=== PATIENT | female | born 1960 | race Caucasian/White ===

== ENCOUNTER 2019-10-13 14:00 | Inpatient (IN) | payer MEDICARE, OTHER ==
[2019-10-12 23:13] VITALS: BP 129/85; PULSE 88
[2019-10-13] VITALS (7 sets, daily range): BP systolic 122–160; BP diastolic 84–107; PULSE 81–100; TEMP 96.9–98.5
[~2019-10-13] VITALS: Ht 157.5 cm; Wt 51.3 kg
[~2019-10-13 14:00] MED LIST: ESTRACE 1MG1 MG/TAB PO; MULTIPLE VITAMI1 CAP PO; NORCO 325 MG-7.1 TAB PO; WARFARIN; ZOCOR; ZOCOR5 MG PO
[2019-10-13] MEDS ORDERED: PROZAC 20MG20 MG PO (15:46)
[2019-10-13] MEDS ORDERED: NAMENDA 10MG TA10 MG PO (15:49)
--- NOTE | 2019-10-13 17:33 | NUR ---
NG PLACED PER DR ORDERS, NG ADVANCED TO 49CM MARKING, OBSERVED IMMEDIATE DARK GREEN EMESIS WELL NG OUTPUT, PUT TO LOW INTERMITTENT SX PER DR ORDER. PATIENT TOLERATED NG PLACEMENT WELL.
--- NOTE | 2019-10-13 17:34 | NUR ---
Patient arrived via ems from [place] report obtained. Patient non verbal, her family at bedside. Dr. Jassi middleton. med rec completed per daughter dpoa. Consent obtained. Ivf to r.wrist. Ng inserted, 14 F. She tolerated well. Full canister emptied, patient also had emesis. fresh linens provided. Patient to or with estella. wedding ring taped. Family to Or waiting room
--- NOTE | 2019-10-13 21:30 | NUR ---
Pt. arrived to the floor via bed from PACU. Pt. is resting quietly, respirations are equal and unlabored. Pt. will grimice to painful stimuli but will not open eyes. Pt. family at bedside. Midline incision CDI. Abd. lap sites X2 to the lt. sited CDI with bandaids. Call light within reach, vitals stable. Will monitor.
--- NOTE | 2019-10-13 21:30 | NUR ---
Pt. laying in bed with family at bedside. Pt. is resting quietly, respirations are eqal and unlabored. IV fluids infusing per orders. NG tube to LIS patent. SUPERVISOR BUILDING MAINTENANCE started per orders. Dr. Keene reports family aloud to assist pt. with pushing button. Education given to family about SUPERVISOR BUILDING MAINTENANCE's. Pt.'s questions answered. Pt.'s family deny further needs at this time. Call light within reach.
[2019-10-14] VITALS (10 sets, daily range): BP systolic 129–141; BP diastolic 84–95; PULSE 91–110; TEMP 97.7–101.9
[2019-10-14 06:46] LABS: BASO % 0.2 % (0.0-2.0); GRAN # 10.7 (1.4-6.5); GRAN % 85.1 % (42.2-75.2); HEMATOCRIT 37.6 % (37.0-47.0); HEMOGLOBIN 12.3 g/dl (12.5-16.0); LYMPH # 0.7 (1.2-3.4); LYMPH % 5.9 % (20.0-51.0); MEAN CELL VOLUME 89 fl (80.0-100.0); MEAN CORPUSCULAR HEMOGLOBIN 29 pg (27.0-31.0); MEAN CORPUSCULAR HGB CONC 33 g/dl (33.0-37.0); MEAN PLATELET VOLUME 10.2 fl (7.4-10.4); MONO # 1.1 (0.1-0.6); MONO % 8.5 % (1.7-9.3); PLATELET COUNT 236 K/mm3 (130-400); RED BLOOD COUNT 4.23 M/mm3 (4.10-5.30); REDCELL DISTRIBUTION WIDTH-CV 13.9 % (11.5-14.5)
[2019-10-14 07:02] LABS: CALCIUM 8.5 mg/dL (8.4-10.2); CREATININE, serum 1.47 (0.52-1.25); POTASSIUM 4.1 mmol/L (3.4-5.0)
--- NOTE | 2019-10-14 08:00 | NUR ---
Patient resting in bed at this time, NG tube in left nare to LIS, approximately 500ml of dark green liquid in suction cannister, none above marked line from previous shift. Patient is alert but non verbal, does not acknowledge questions or attempt to answer them nonverbally. COMMUNITY PLANNER in place per order. Patient and family deny needs at this time, call light within reach.
--- NOTE | 2019-10-14 09:00 | NUR ---
Patient's daughter calls to report that patient has removed her NG tube. Called oncall surgeon and recieved instructions not to replace the tube, but to report if the patient becomes nauseated or begins vomiting.
--- NOTE | 2019-10-14 12:21 | NUR ---
Plan: To return home with DTR Shandra and Raul and Home health care through [facility]. Assess: SW met with patient, dtr, and spouse in room. Patient is non verbal and uses no other forms to communicate. Patient is reported by DTR to be weak when walking and often loses her balance. Patient is taken care of by her and dtr but also have other children not local. DTR is names as the DPOA for HC. Family is wanting additional supports at home and have agreed to use home health care services. Family provided with the medicare.gov sheet. Patient does not use any DME at this time but they are wanting a walker. PCP is reported as Dr. Benitez. RX is obtained at [facility]. Patient is reported to be [id number] for approx. 1 year. provides transport and DTR helps with meals and medications. teary when talking about wifes care. Action: SW made referral to [place] on behalf of the family choice, SW provided additional information on [employer] about care attendent, and other DME that they shante need. Awaiting PT eval to assist with obtaining walker through insurance.
--- NOTE | 2019-10-14 19:03 | NUR ---
Patient resting in bed at this time. Waddell in place per order. AUTO CLUTCH SPECIALIST continues per order. Dressing to midline remians CDI. Patient/family deny nausea or vomiting. No needs at this time, call light within reach.
--- NOTE | 2019-10-14 22:00 | NUR ---
PT IN BED. FAMILY IN ROOM. PT HAS BEEN NON-VERBAL BUT COOPERATIVE. DRESSING TO ABDOMEN CD&I.
[2019-10-15 03:54] VITALS: BP 133/84; PULSE 91; TEMP 98.6
[2019-10-15 06:14] LABS: BASO % 0.1 % (0.0-2.0); EOS % 0.4 % (0-4.0); GRAN # 7.2 (1.4-6.5); GRAN % 81.3 % (42.2-75.2); LYMPH # 0.8 (1.2-3.4); LYMPH % 8.9 % (20.0-51.0); MEAN CELL VOLUME 89 fl (80.0-100.0); MEAN CORPUSCULAR HGB CONC 33 g/dl (33.0-37.0); MEAN PLATELET VOLUME 9.8 fl (7.4-10.4); MONO # 0.8 (0.1-0.6); MONO % 8.6 % (1.7-9.3); PLATELET COUNT 178 K/mm3 (130-400); RED BLOOD COUNT 3.47 M/mm3 (4.10-5.30); REDCELL DISTRIBUTION WIDTH-CV 14.1 % (11.5-14.5)
--- NOTE | 2019-10-15 06:16 | NUR ---
PT RESTED QUIETLY MOST OF NIGHT. PT WAS EXTREMELY AGITATED AT TIMES BY NASAL CANNULA FROM CSR.
[2019-10-15 06:22] LABS: HEMOGLOBIN 10.2 g/dl (12.5-16.0); MEAN CORPUSCULAR HEMOGLOBIN 29 pg (27.0-31.0)
[2019-10-15 06:27] LABS: CALCIUM 8.3 mg/dL (8.4-10.2); CREATININE, serum 0.82 (0.52-1.25); POTASSIUM 3.7 mmol/L (3.4-5.0)
[2019-10-15 07:35] VITALS: BP 142/95; PULSE 89; TEMP 98.4
--- NOTE | 2019-10-15 09:28 | NUR ---
Faxed referral information to [facility] at [phone].
[2019-10-15 10:48] VITALS: BP 140/86; PULSE 100; TEMP 98.7
[2019-10-15 15:44] VITALS: BP 132/90; PULSE 103; TEMP 98.7
[2019-10-15 20:00] VITALS: BP 130/79; PULSE 97; TEMP 99.6
--- NOTE | 2019-10-15 20:00 | NUR ---
Pt. sitting up in bed with at bedside. Pt. is alert, unable to determine orientation. Midline incision to abd- edges well approximated, 2 abd. lap sites with bandaids, CDI. Pt. does not appear to be in pain at this time. Call light within reach.
[2019-10-16 04:12] VITALS: BP 132/77; PULSE 100; TEMP 98.7
--- NOTE | 2019-10-16 06:18 | NUR ---
Pt. slept well through the night. Pt. status remains unchanged. at bedside. Call light within reach.
[2019-10-16 06:20] LABS: BASO % 0.1 % (0.0-2.0); EOS # 0.1 (0.0-0.7); EOS % 0.8 % (0-4.0); GRAN # 8.9 (1.4-6.5); GRAN % 86.1 % (42.2-75.2); HEMOGLOBIN 10.6 g/dl (12.5-16.0); LYMPH # 0.5 (1.2-3.4); LYMPH % 5.1 % (20.0-51.0); MEAN CELL VOLUME 87 fl (80.0-100.0); MEAN CORPUSCULAR HEMOGLOBIN 29 pg (27.0-31.0); MEAN CORPUSCULAR HGB CONC 34 g/dl (33.0-37.0); MEAN PLATELET VOLUME 9.9 fl (7.4-10.4); MONO # 0.8 (0.1-0.6); MONO % 7.3 % (1.7-9.3); PLATELET COUNT 188 K/mm3 (130-400); RED BLOOD COUNT 3.61 M/mm3 (4.10-5.30); REDCELL DISTRIBUTION WIDTH-CV 13.7 % (11.5-14.5)
[2019-10-16 06:22] LABS: HEMATOCRIT 31.5 % (37.0-47.0)
[2019-10-16 08:00] VITALS: BP 132/79; PULSE 112; TEMP 101.7
--- NOTE | 2019-10-16 08:30 | NUR ---
rounded. Orders obtained. Student nurse assisting with cares. Patient jimenez dc per orders. Iv antibioitcs ordered. Patient slightly tachy & febrile. Encouraged coughing & deep breathing. blankets removed. Student nurse assisting with shower & fresh linens. Will monitor closely.
[2019-10-16 09:23] VITALS: TEMP 99
[2019-10-16 10:46] VITALS: BP 127/83; PULSE 100; TEMP 98
--- NOTE | 2019-10-16 11:42 | NUR ---
First visit from the rehabilitation services coordinator. No needs right now.
--- NOTE | 2019-10-16 13:10 | NUR ---
Attempted to give patient oral tylenol for pain- crushed with applesauce, Patient had large amount of projectile emesis, light green in color. Patient also had very large amount of loose incontinent stool. Patient was given second shower for the day. Fresh linens provided. notifed & undated on status. Orders for speech also obtained. Family okay with speech involvment.
--- NOTE | 2019-10-16 14:49 | NUR ---
WILIAN met with the patient, patient's , and daughter to review discharge plan. The patient's reports that they are now interested in swing bed at [facility]. The patient's daughter, Shandra, was supportive of this plan. WILIAN presented and explained the Patient Choice Form to the patient's and daughter. They preferred 1) [facility] 2) [facility]. Patient Choice Form signed by the patient's and they were provided a copy. WILAIN attempted to contact Oriana at [facility]. WILIAN left her a voicemail and faxed the referral. WILIAN contacted and faxed a referral to Alina at [facility]. SW awaiting their screens. The patient's and daughter also had questions about getting approved for private duty services by insurance, DME covered by insurance, and Medicaid. WILIAN consulted Financial Counselor, Kelley. WILIAN also provided the patient with information on [employer] and Medicare's Benefits and Costs for a walk-in tub/shower and ramps.
--- NOTE | 2019-10-16 15:51 | NUR ---
Patient seems to be tolerating clear liquids. no signs of nausea, family reports she is belching. Patient assisted to bathroom, loose stool, pericare provided. Iv zosyn per orders .
[2019-10-16 16:46] VITALS: BP 135/91; PULSE 95; TEMP 98.5
--- NOTE | 2019-10-16 19:27 | NUR ---
Patient sitting up in chair. Attentive family at bedside. She ambulated halls, was up to the bathroom, stool & urine. New breif applied & incontinent cares. Iv fluids resumed. Patient is belching. tolerating clears at this time. Report to Alyse RUCKER
[2019-10-16 20:00] VITALS: BP 136/83; PULSE 102; TEMP 98.2
--- NOTE | 2019-10-16 22:26 | NUR ---
Patient has had 2 episodes of emesis. first episode was about 400ml into bucket, green in color. 2nd episode was not measured as she threw up in bed. patient does not seem in pain or distress. at bedside. call light within reach, will continue to monitor
--- NOTE | 2019-10-16 23:44 | NUR ---
Pt had another episode of emesis, unmeasureable and she threw up in bed. Green in color with chunks of what look like vegetables
[2019-10-17] VITALS (697 sets, daily range): BP systolic 95–144; BP diastolic 68–107; PULSE 104–120; TEMP 97.9–99.3; O2SAT 70–100
--- NOTE | 2019-10-17 03:29 | NUR ---
Patient doing ok since last emesis episode. Sleeping in bed. Zosyn running. Call light within reach, will continue to monitor
--- NOTE | 2019-10-17 09:45 | NUR ---
Patient alert, non communicating per patients norm. See assessment. Lungs decreased in bases, clear in upper lobes. Heart tones strong and even. Abdomen with small midline incision and lap sites CDI, no redness or drainage noted. Bowel sounds distant/absent. Abdomen firm and rounded. No flatus or BM. No guarding noted with palpation. Oxygen at 4l/nc, sats 90-92%. No s/s pain or discomfort noted.
[2019-10-17 10:24] LABS: HEMATOCRIT 39.6 % (37.0-47.0); MEAN CELL VOLUME 87 fl (80.0-100.0); MEAN CORPUSCULAR HEMOGLOBIN 29 pg (27.0-31.0); MEAN CORPUSCULAR HGB CONC 34 g/dl (33.0-37.0); MEAN PLATELET VOLUME 10.3 fl (7.4-10.4); PLATELET COUNT 241 K/mm3 (130-400); RED BLOOD COUNT 4.58 M/mm3 (4.10-5.30); REDCELL DISTRIBUTION WIDTH-CV 13.6 % (11.5-14.5)
[2019-10-17 10:31] LABS: CALCIUM 9.3 mg/dL (8.4-10.2); CREATININE, serum 2.17 (0.52-1.25); POTASSIUM 3.1 mmol/L (3.4-5.0)
[2019-10-17 10:32] LABS: HEMOGLOBIN 13.3 g/dl (12.5-16.0)
[2019-10-17 10:51] LABS: BAND 31 % (0-10); LYMPHOCYTE 4 % (20.0-51.0); NEUTROPHILS 62 % (42.0-75.2)
[2019-10-17 10:52] LABS: PLATELET ESTIMATE NORMAL (NORMAL)
[2019-10-17 11:14] LABS: ARTERIAL BLD GAS O2 SATURATION 86.6 % (92-100); ARTERIAL BLD GAS TCO2 CT 32.2; ARTERIAL BLOOD GAS BASE EXCESS 7.9 (-2-2); ARTERIAL BLOOD GAS PCO2 37.8 mmHg (35-45); ARTERIAL BLOOD GAS PO2 48.5 mmHg (80-100); ARTERIAL BLOOD GAS pH 7.53 (7.35-7.45)
--- NOTE | 2019-10-17 11:15 | NUR ---
Patient family request VS to be checked. Upon entering room, patient noted to have labored breathing. Acute change noted in VS, see flowsheet. Dr Keene notified of change of status. Orders received. Dr Mendoza notified of consult. Family member at bedside and updated of all events. Oxygen increased to 15l per oxymask. Becky SUPERINTENDENT OIL FIELD DRILLING at bedside.
--- NOTE | 2019-10-17 11:38 | NUR ---
The patient's oxygen sats dropped to the 70s this morning. The patient is to transfer to the ICU. WILIAN contacted medical records at [facility] and requested a copy of the patient's DPOA-HC. WILIAN received the patient's DPOA-HC, via fax. The patient's DPOA-HC is the patient's daughter, Shandra, and the alternate is her . WILIAN placed the form in the patient's chart. WILIAN contacted and updated [facility] and [facility]. WILIAN to continue to follow.
[2019-10-17 11:51] LABS: ALBUMIN 3.5 gm/dL (3.5-5.0); BILIRUBIN,TOTAL 1.1 mg/dL (0.0-1.0); TOTAL PROTEIN 6.9 gm/dL (6.4-8.2)
--- NOTE | 2019-10-17 12:15 | NUR ---
Patient arrives to ICU 5 via bed and is attached to monitor. Assessment and vitals as charted. Patient currently on 10L oxygen via OM. Patient at [facility]. Care assumed.
[2019-10-17 14:23] LABS: ARTERIAL BLD GAS O2 SATURATION 93.9 % (92-100); ARTERIAL BLD GAS TCO2 CT 32.4; ARTERIAL BLOOD GAS BASE EXCESS 8.5 (-2-2); ARTERIAL BLOOD GAS HCO3 31.3 meq/L (22-26); ARTERIAL BLOOD GAS PCO2 36.9 mmHg (35-45); ARTERIAL BLOOD GAS PO2 66.7 mmHg (80-100); ARTERIAL BLOOD GAS pH 7.55 (7.35-7.45)
--- NOTE | 2019-10-17 18:21 | NUR ---
Dr. Soto rounds at this time. No new orders recieved.
--- NOTE | 2019-10-17 19:45 | NUR ---
Patient de-saturated to upper 80's on 6L. Notified Rt. RT called [facility] to ask about getting PRN breathing treatment orders. Awaiting further orders. RT at bedside and increased 02 to 10L oxymask and 02 ranging 92-95%. Will continue to monitor.
--- NOTE | 2019-10-17 23:10 | NUR ---
Patient noted to be de-saturating to the 70's. NC was at 10 L. Replaced with oxymask at 15L. RT currenlty at bedside and giving a breathing treatment. Patient awake and alert. Unable to respond to questions due to dementia. [facility] called and spoke with CHAIM Bauer. [facility] physician to call back or camera in to room. Hospitalist updated on patient status and will come to see patient at this time.
[2019-10-17 23:52] LABS: ARTERIAL BLD GAS O2 SATURATION 79.3 % (92-100); ARTERIAL BLD GAS TCO2 CT 32.2; ARTERIAL BLOOD GAS BASE EXCESS 8.7 (-2-2); ARTERIAL BLOOD GAS HCO3 31.1 meq/L (22-26); ARTERIAL BLOOD GAS PCO2 35.4 mmHg (35-45); ARTERIAL BLOOD GAS pH 7.56 (7.35-7.45)
--- NOTE | 2019-10-17 23:55 | NUR ---
Hospitalist speaking with family regarding patient status and intubation status. Family member verbalized that intubation could be done if needed.
[2019-10-17 23:56] LABS: ARTERIAL BLOOD GAS PO2 40.3 mmHg (80-100)
[2019-10-18] VITALS (1420 sets, daily range): BP systolic 48–146; BP diastolic 24–106; PULSE 72–129; TEMP 98.3–99.7; O2SAT 69–100
--- NOTE | 2019-10-18 00:55 | NUR ---
After reviewing ABG results at 0045, hospitalist gave orders to intubate. Paged anesthesia to come in at this time. Patient continues to be alert and confused per baseline.
--- NOTE | 2019-10-18 00:58 | NUR ---
ABG obtained. 02 de-saturated to low to mid 80's on Air VO 60L at 80% fi02. RT increased FIO2 95%. Hospitalist notified; requested to be called with results.
[2019-10-18 01:05] LABS: ARTERIAL BLD GAS O2 SATURATION 87.8 % (92-100); ARTERIAL BLD GAS TCO2 CT 30.7; ARTERIAL BLOOD GAS BASE EXCESS 7.8 (-2-2); ARTERIAL BLOOD GAS HCO3 29.6 meq/L (22-26); ARTERIAL BLOOD GAS PCO2 32.8 mmHg (35-45); ARTERIAL BLOOD GAS PO2 50.1 mmHg (80-100); ARTERIAL BLOOD GAS pH 7.57 (7.35-7.45)
--- NOTE | 2019-10-18 01:25 | NUR ---
Anesthesia at bedside; intubation occured at 0135. Just prior to intubation patient vomitied a copious amount of green emesis. Anesthesia suctioned with oral suction catheter multiple times prior to intubation.
--- NOTE | 2019-10-18 02:10 | NUR ---
Code status discussed with ; still wishes to remaina full code and is ok with intubation if necessary.
--- NOTE | 2019-10-18 02:18 | NUR ---
Dr. Rea at bedside to assess patient.
--- NOTE | 2019-10-18 02:25 | NUR ---
No return observed from NG after initial placement. Re-attempted and upon second attempt immediately recived copious amount of dark green fluid. Filled up 2L within [address] NG. Wall suction monitored and set to appropriate suction. Will continue to monitor.
--- NOTE | 2019-10-18 02:32 | NUR ---
at bedside; Dr. Soto speaking to him to update on patient status and current situation.
--- NOTE | 2019-10-18 02:45 | NUR ---
Dr. Soto at bedside; time-out performed for central line at this time.
--- NOTE | 2019-10-18 03:30 | NUR ---
Hospitalist aware of irregular Levophed drip titrations.
[2019-10-18 03:31] LABS: ARTERIAL BLD GAS O2 SATURATION 97.3 % (92-100); ARTERIAL BLOOD GAS BASE EXCESS 5.1 (-2-2); ARTERIAL BLOOD GAS HCO3 28.8 meq/L (22-26); ARTERIAL BLOOD GAS PCO2 39.3 mmHg (35-45); ARTERIAL BLOOD GAS PO2 94.1 mmHg (80-100); ARTERIAL BLOOD GAS pH 7.48 (7.35-7.45)
--- NOTE | 2019-10-18 03:45 | NUR ---
Placed jimenez and received small amount of hazy dark yellow urine. Sent UA to lab. Pt tolerated procedure well.
--- NOTE | 2019-10-18 04:00 | NUR ---
Patient not tolerating intubation at 0130. Xray called to confirm placement, restraints in place, hospitalist at bedside, elizabeth was also consulted. Low blood pressure 40s systolic and poor oxygenation 82% noted at 0200. Patient subsequently bagged by RT. at bedside, expressed wishes to contiue full measures of support. By 0220, after initiation of levophed, BP 108/82 with a map of 90. RT bagged patient for around [address] Soto arrived at bedside around 0225. OG repositioned with large amounts of drainage noted. Dr. Soto placed a right IJ at 0300 with xray confirmation of placement. Patient BP maintaining with fluid boluses and medication. 0400 BP 112/80 map 89, SpO2 96% via vent. Patient resting comfortably, no signs of distress at this time. Patient cleaned, repositioned, jimenez placed, and family at bedside.
[2019-10-18 05:08] LABS: COLLECTION METHOD CATHETER
[2019-10-18 05:12] LABS: HEMOGLOBIN 11.5 g/dl (12.5-16.0); MEAN CELL VOLUME 88 fl (80.0-100.0); MEAN CORPUSCULAR HEMOGLOBIN 29 pg (27.0-31.0); MEAN CORPUSCULAR HGB CONC 33 g/dl (33.0-37.0); MEAN PLATELET VOLUME 10.2 fl (7.4-10.4); PLATELET COUNT 270 K/mm3 (130-400); RED BLOOD COUNT 3.96 M/mm3 (4.10-5.30); REDCELL DISTRIBUTION WIDTH-CV 13.9 % (11.5-14.5)
[2019-10-18 05:17] LABS: INR 1.5 (0.8-3.0); PROTHROMBIN TIME 18.1 SECONDS (9.7-12.8)
[2019-10-18 05:22] LABS: ALBUMIN 2.2 gm/dL (3.5-5.0); BILIRUBIN,TOTAL 1.1 mg/dL (0.0-1.0); CALCIUM 7.4 mg/dL (8.4-10.2); CREATININE, serum 3.19 (0.52-1.25); MAGNESIUM 1.5 mg/dL (1.6-2.3); TOTAL PROTEIN 4.8 gm/dL (6.4-8.2)
[2019-10-18 05:26] LABS: MUCOUS Present /lpf; PH 5 (5-8); SQUAMOUS EPITHELIAL 20-50 /hpf; URINE APPEARANCE Turbid; URINE BACTERIA Rare /hpf; URINE BILIRUBIN Negative (NEGATIVE); URINE BLOOD 1+ (NEGATIVE); URINE COLOR Yellow; URINE GLUCOSE 1+ (NEGATIVE); URINE KETONE Trace (NEGATIVE); URINE LEUKOCYTE ESTERASE Negative (NEGATIVE); URINE NITRATE Negative (NEGATIVE); URINE PROTEIN(semi-quant) 2+ (NEGATIVE); URINE RBC >50 /hpf; URINE UROBILINOGEN Negative (NEGATIVE)
[2019-10-18 05:30] LABS: POTASSIUM 2.9 mmol/L (3.4-5.0)
[2019-10-18 05:33] LABS: TROPONIN-I 0.035 ng/mL (0.000-0.035)
--- NOTE | 2019-10-18 06:27 | NUR ---
Vancomycin Initial Dosing Pharmacy Note Ordering provider: Arik Indication/duration: Asp.PNA Relevant comorbidities: s/p SBO surgery, AHRF, on Zosyn LABS: SCr worsened to 3.19 today, eCrCl~ 15 mL/min Recommendation: Loading dose: 1 gram was given 10/18/19 @ 04:00 Maintenance dose: 500 mg Q24H Trough goal: 15-20 ug/mL, first trough will be drawn prior to her 4th dose on 10/21/19 at 05:30. Will continue to monitor for worsening renal function and adjust doses as indicated.
--- NOTE | 2019-10-18 06:45 | NUR ---
PT FUAD PULLING TIDAL VOLUMES BETWEEN 100-200 AND WENT APNEIC TWICE DURING WEANING TRIAL. SWITCHED BACK OVER TO AC MODE, DAYSHIFT WILL TRY AGAIN ONCE SEDATION WEARS OFF MORE.
[2019-10-18 07:30] LABS: BAND 75 % (0-10); LYMPHOCYTE 2 % (20.0-51.0); METAMYELOCYTE 2 % (0-0); NEUTROPHILS 19 % (42.0-75.2)
[2019-10-18 07:31] LABS: PLATELET ESTIMATE NORMAL (NORMAL)
--- NOTE | 2019-10-18 07:45 | NUR ---
Bedside report given to CHAIM Gomez. All lines/tubes reviewes, family at bedside througout, care transferred at this time.
--- NOTE | 2019-10-18 08:30 | NUR ---
VT changed to 400, FiO2 changed to 60% per Dr. Soto while at bedside. Verbal for repeat ABG at 1400 given.
--- NOTE | 2019-10-18 09:38 | NUR ---
AUXILIARY ENGINEER student attended clinical rounds with the team. The patient is intubated. coordinator volunteer services will continue to monitor.
[2019-10-18 10:01] LABS: ARTERIAL BLD GAS O2 SATURATION 97.4 % (92-100); ARTERIAL BLD GAS TCO2 CT 24.5; ARTERIAL BLOOD GAS BASE EXCESS 0.6 (-2-2); ARTERIAL BLOOD GAS HCO3 23.5 meq/L (22-26); ARTERIAL BLOOD GAS PCO2 32.1 mmHg (35-45); ARTERIAL BLOOD GAS PO2 98.9 mmHg (80-100); ARTERIAL BLOOD GAS pH 7.48 (7.35-7.45)
--- NOTE | 2019-10-18 10:06 | NUR ---
at bedside. Pt continues to tolerate being off vent without issue
--- NOTE | 2019-10-18 10:27 | NUR ---
RAILROAD WATCHMAN student faxed updates to [facility] and to [facility]. manager managed backup services will continue to monitor.
--- NOTE | 2019-10-18 10:28 | NUR ---
Coughing up moderate amount of thick white secretions. Pt using suction wand to clear from mouth.
--- NOTE | 2019-10-18 11:30 | NUR ---
Patient resting in bed with eyes closed. Does open eyes when repositioned. Lines infusing well, wrist restaints on, patient compliant with ET tube, jimenez draining to gravity, OG to LIS with green discharge noted. CVP monitoring in place as well.
[2019-10-18 14:10] LABS: MAGNESIUM 1.9 mg/dL (1.6-2.3); PHOSPHOROUS 3.6 mg/dL (2.5-4.5); POTASSIUM 3.5 mmol/L (3.4-5.0)
[2019-10-18 15:52] LABS: ARTERIAL BLD GAS O2 SATURATION 97.9 % (92-100); ARTERIAL BLD GAS TCO2 CT 26.9; ARTERIAL BLOOD GAS BASE EXCESS 2.3 (-2-2); ARTERIAL BLOOD GAS HCO3 25.8 meq/L (22-26); ARTERIAL BLOOD GAS PO2 104.9 mmHg (80-100); ARTERIAL BLOOD GAS pH 7.47 (7.35-7.45)
--- NOTE | 2019-10-18 18:03 | NUR ---
Resting on vent. FiO2 now at 35%
--- NOTE | 2019-10-18 19:30 | NUR ---
Bedside report received from CHAIM Gomez. All lines/tubes reviewed, care assumed at this time, family at bedside.
--- NOTE | 2019-10-18 20:35 | NUR ---
David called regarding CVP and possible need for more fluids. Gave report to Marv, awaiting orders from Dr. Nina.
[2019-10-19] VITALS (1311 sets, daily range): BP systolic 84–156; BP diastolic 59–96; PULSE 41–73; TEMP 98.1–98.6; O2SAT 78–100
[2019-10-19 01:58] LABS: URINE PROTEIN:CREAT RATIO 1.39 (0.00-0.14)
[2019-10-19 06:13] LABS: ARTERIAL BLOOD GAS BASE EXCESS -3.6 (-2-2); ARTERIAL BLOOD GAS HCO3 19.6 meq/L (22-26); ARTERIAL BLOOD GAS PCO2 29.1 mmHg (35-45); ARTERIAL BLOOD GAS PO2 114.4 mmHg (80-100); ARTERIAL BLOOD GAS pH 7.45 (7.35-7.45)
[2019-10-19 06:41] LABS: ALBUMIN 2.2 gm/dL (3.5-5.0); BILIRUBIN,TOTAL 0.7 mg/dL (0.0-1.0); CREATININE, serum 3.71 (0.52-1.25); PHOSPHOROUS 3.9 mg/dL (2.5-4.5); POTASSIUM 3.3 mmol/L (3.4-5.0); TOTAL PROTEIN 4.7 gm/dL (6.4-8.2)
[2019-10-19 07:00] LABS: MEAN CELL VOLUME 90 fl (80.0-100.0); MEAN CORPUSCULAR HGB CONC 33 g/dl (33.0-37.0); MEAN PLATELET VOLUME 10.5 fl (7.4-10.4); PLATELET COUNT 228 K/mm3 (130-400); RED BLOOD COUNT 2.96 M/mm3 (4.10-5.30); REDCELL DISTRIBUTION WIDTH-CV 14.5 % (11.5-14.5)
[2019-10-19 07:05] LABS: HEMATOCRIT 26.5 % (37.0-47.0); HEMOGLOBIN 8.8 g/dl (12.5-16.0); MEAN CORPUSCULAR HEMOGLOBIN 30 pg (27.0-31.0)
--- NOTE | 2019-10-19 07:29 | NUR ---
Bedside report given to CHAIM Reynoso and CHAIM Lott. All lines/tubes reviewed, patient repositioned to left side-tolerated well. Care transferred at this time.
--- NOTE | 2019-10-19 08:00 | NUR ---
LOW OUT PUT [id number] BUN INCREASE, CONSULT BEHCHERRIEES
[2019-10-19 08:38] LABS: BAND 45 % (0-10); EOSINOPHIL 4 % (0-4); LYMPHOCYTE 3 % (20.0-51.0); NEUTROPHILS 47 % (42.0-75.2); OVALOCYTES 1+; PLATELET ESTIMATE NORMAL (NORMAL)
--- NOTE | 2019-10-19 09:23 | NUR ---
Initial visit: Patient's daughter thanked Intelligence Engineer for looking in on her mother, offering God's blessings and keeping Kellen in her prayers.
--- NOTE | 2019-10-19 10:01 | NUR ---
LINEMAN SERVICE OR WORK DISPATCHER student attended clinical rounds with the team. The patient is on two antibiotics and possible be extubated 10/20. LINEMAN SERVICE OR WORK DISPATCHER student faxed updates to [facility] and to [facility] [place]. services account manager will continue to follow.
[2019-10-19 13:26] LABS: ARTERIAL BLD GAS TCO2 CT 19.5; ARTERIAL BLOOD GAS BASE EXCESS -5.1 (-2-2); ARTERIAL BLOOD GAS HCO3 18.6 meq/L (22-26); ARTERIAL BLOOD GAS PCO2 29.7 mmHg (35-45); ARTERIAL BLOOD GAS PO2 95.7 mmHg (80-100); ARTERIAL BLOOD GAS pH 7.42 (7.35-7.45)
--- NOTE | 2019-10-19 18:32 | NUR ---
1830 PATIENT WENT INTO SLOW BRADYCARDIA AT 34, PROPOFOLOL AND FENTANYL STOPPED IMMEDIATELY PATIENT PULSE RESTORED IN MINUTES. FENTANYL BACK ON AT SAME RATE
[2019-10-19 20:09] LABS: MAGNESIUM 1.9 mg/dL (1.6-2.3); POTASSIUM 3.5 mmol/L (3.4-5.0)
--- NOTE | 2019-10-19 20:15 | NUR ---
Spoke with the pts , Raul and daughter. They had some quesitons about making the patient a DNR. We discussed that we would continue to work hard to help her get better, but we wouldn't interviene if her heart were to stop. She would remain intubated and we would continue to support her in any way we could. They were very tearful during the conversations. At the end of the conversation they asked myself, Nancy RUCKER and Ignacio RN to ask Dr. Soto to write the DNR order.
[2019-10-20] VITALS (1283 sets, daily range): BP systolic 93–123; BP diastolic 64–87; PULSE 54–66; TEMP 98–99; O2SAT 80–100
--- NOTE | 2019-10-20 05:08 | NUR ---
SEDATION VACATOIN STARTED, FENTANYL AND VERSED ALREADY AT LOWEST RATE THEREFORE BOTH ARE ON STANDBY, RESPIRATORY THERAPIST, JUAN CARLOS, NOTIFIED AND STATED SHE WILL START WEANING TRIAL SOON.
--- NOTE | 2019-10-20 05:08 | NUR ---
VERSED ON STANDBY FOR SEDATION VACATION AND WEAN TRIAL FOR VENT.
[2019-10-20 05:21] LABS: ARTERIAL BLD GAS O2 SATURATION 97.9 % (92-100); ARTERIAL BLD GAS TCO2 CT 20.2; ARTERIAL BLOOD GAS BASE EXCESS -4.7 (-2-2); ARTERIAL BLOOD GAS HCO3 19.3 meq/L (22-26); ARTERIAL BLOOD GAS PCO2 30.1 mmHg (35-45); ARTERIAL BLOOD GAS PO2 109.1 mmHg (80-100); ARTERIAL BLOOD GAS pH 7.43 (7.35-7.45)
--- NOTE | 2019-10-20 06:27 | NUR ---
PT IS ON A WEANING TRIAL TING WELL WITH NO DISTRESS NOTED AT THIS TIME
[2019-10-20 06:29] LABS: PROTHROMBIN TIME 11.5 SECONDS (9.7-12.8)
[2019-10-20 06:35] LABS: ALBUMIN 2.2 gm/dL (3.5-5.0); BILIRUBIN,TOTAL 0.5 mg/dL (0.0-1.0); CALCIUM 7.6 mg/dL (8.4-10.2); CREATININE, serum 3.73 (0.52-1.25); HEMATOCRIT 24.5 % (37.0-47.0); HEMOGLOBIN 8.1 g/dl (12.5-16.0); MEAN CELL VOLUME 90 fl (80.0-100.0); MEAN CORPUSCULAR HEMOGLOBIN 30 pg (27.0-31.0); MEAN CORPUSCULAR HGB CONC 33 g/dl (33.0-37.0); MEAN PLATELET VOLUME 10.7 fl (7.4-10.4); PHOSPHOROUS 5.2 mg/dL (2.5-4.5); PLATELET COUNT 218 K/mm3 (130-400); POTASSIUM 3.8 mmol/L (3.4-5.0); RED BLOOD COUNT 2.73 M/mm3 (4.10-5.30); REDCELL DISTRIBUTION WIDTH-CV 14.6 % (11.5-14.5); TOTAL PROTEIN 4.9 gm/dL (6.4-8.2)
--- NOTE | 2019-10-20 06:58 | NUR ---
FENTANYL ON STANDBY FOR SEDATION VACATION BECAUSE IT WAS ALREADY AT LOWEST DOSE. PT GOING TO START WEAN TRIAL
[2019-10-20 07:21] LABS: BAND 34 % (0-10); LYMPHOCYTE 4 % (20.0-51.0); METAMYELOCYTE 1 % (0-0); NEUTROPHILS 59 % (42.0-75.2)
[2019-10-20 07:24] LABS: PLATELET ESTIMATE NORMAL (NORMAL)
--- NOTE | 2019-10-20 07:55 | NUR ---
Changing versed to intermittent push d/t bradycardia.
--- NOTE | 2019-10-20 08:25 | NUR ---
OG tube advanced 10cm per Dr Soto's request. Placement confirmed with air and gastric content aspiration.
[2019-10-20 09:41] LABS: CHOLESTEROL 122 mg/dL (120-200); TRIGLYCERIDE 158 mg/dL
--- NOTE | 2019-10-20 10:16 | NUR ---
SPECTROGRAPH OPERATOR student [facility] updates [facility] and [facility] [place] [facility]. building services engineer will continue to follow.
--- NOTE | 2019-10-20 10:39 | NUR ---
Follow-up visit; Patient's requested prayer and appeared to be pleased to visit with Manager Primary. Manager Primary left her card.
--- NOTE | 2019-10-20 12:00 | NUR ---
Pt has rested throughout shift. Opens eyes to tactile stimuli, does not follow commands. OG residuals elevated despite tube feeding held x 4 hours. Green bile drainage. Plan to start TPN this afternoon. Multiple family members in and out of room-respectful of unit policies. Levophed gtt off since 0900 this am. Map remains above 65.
--- NOTE | 2019-10-20 19:45 | NUR ---
Bedside report provided to oncoming shift. Tubes/lines/pumps reviewed. Pt's daughter and at bedside during exchange. Questions addressed prior them leaving for the night.
[2019-10-21] VITALS (1225 sets, daily range): BP systolic 110–148; BP diastolic 71–85; PULSE 53–70; TEMP 97.4–98.7; O2SAT 86–100
--- NOTE | 2019-10-21 05:00 | NUR ---
0500: PT SEDATION CUT IN HALF. PT OPENS EYES TO VOICE. PT ABLE TO FOLLOW SOME COMMANDS SUCH GRIPPING AND OPENING HER MOUTH, BUT NOT ABLE TO WIGGLE TOES. PT FREELY MOVING ALL EXTREMITIES. PT FALLING BACK ASLEEP WITHOUT CONTINUOUS STIMULATION. 0515: PT SEDATION TURNED OFF. PT STILL OPENING EYES TO VOICE. VENT WEANING TRIAL STARTED. WILL CONTINUE TO MONITOR AND ADJUST SEDATION NEEDED.
[2019-10-21 06:23] LABS: MEAN CELL VOLUME 89 fl (80.0-100.0); MEAN CORPUSCULAR HGB CONC 33 g/dl (33.0-37.0); MEAN PLATELET VOLUME 10.2 fl (7.4-10.4); PLATELET COUNT 237 K/mm3 (130-400); RED BLOOD COUNT 2.74 M/mm3 (4.10-5.30); REDCELL DISTRIBUTION WIDTH-CV 14.6 % (11.5-14.5)
[2019-10-21 06:32] LABS: PROTHROMBIN TIME 11.9 SECONDS (9.7-12.8)
[2019-10-21 06:34] LABS: HEMATOCRIT 24.4 % (37.0-47.0); MEAN CORPUSCULAR HEMOGLOBIN 29 pg (27.0-31.0)
[2019-10-21 06:41] LABS: ALBUMIN 2.2 gm/dL (3.5-5.0); BILIRUBIN,TOTAL 0.4 mg/dL (0.0-1.0); CALCIUM 7.7 mg/dL (8.4-10.2); CREATININE, serum 4.03 (0.52-1.25); MAGNESIUM 2.4 mg/dL (1.6-2.3); PHOSPHOROUS 4.3 mg/dL (2.5-4.5); POTASSIUM 3.5 mmol/L (3.4-5.0); TOTAL PROTEIN 4.8 gm/dL (6.4-8.2)
[2019-10-21 07:23] LABS: BAND 19 % (0-10); LYMPHOCYTE 1 % (20.0-51.0); METAMYELOCYTE 1 % (0-0); NEUTROPHILS 79 % (42.0-75.2)
[2019-10-21 07:24] LABS: ANISOCYTOSIS 1+; HYPOCHROMIA 1+
--- NOTE | 2019-10-21 08:03 | NUR ---
SEDATION BEGINS AGAIN
--- NOTE | 2019-10-21 22:15 | NUR ---
LAB CALLED AND NOTIFIED THIS RN OF POSITIVE BC FOR YEAST. RUDOLPH CALLED AND EDILIA RUCKER NOTIFIED. PT ALREADY ON ANTIFUNGAL D\T YEAST IN THE URINE. EDILIA MARS WILL NOTIFY CUSTOMER SUCCESS DIRECTOR AND PLACE ORDERS IF NEEDED. NO NEW ORDERS ARRIVED AT THIS TIME. WILL CONTINUE TO MONITOR.
--- NOTE | 2019-10-21 22:48 | NUR ---
PT'S ET TUBE BECAME OCCLUDED WITH THICK SECRETIONS. TILE DECORATOR AND RT CALLED. ATTEMPTED TO SUCTION BUT UNABLE TO CLEAR. RT IRRIGATED AND ATTEMPTED SUCTION. PT BRADIED DOWN TO 43. CALLED AND NOTIFIED. PT SET UP FOR BRONCH. FAMILY CALLED AND NOTIFIED. CONSENT WITH COMPLETED OVER THE PHONE WITH THIS RN AND TILE DECORATOR. BRONCH STARTED AT 2248 AND COMPLETED AT 2258. UPDATED PT'S FAMILY IN WAITING ROOM. VS REMAINED STABLE DURING PROCEDURE. PT GIVEN LIDOCAINE INHALATION DURING PROCEDURE. PT NOW TO GET MUCOMYST QID. PT NOW BACK ON VENT AT PREVIOUS SETTINGS. PT REMAINNG SB IN THE 50-60 AND VSS. FENTANYL RESTARTED. NO LONGER PLANNING TO EXTUBATED IN AM. WILL CONTINUE SEDATION NEEDED. WILL CONTINUE TO MONITOR CLOSELY.
--- NOTE | 2019-10-21 23:45 | NUR ---
CALLED THIS RN TO CHECK ON PT'S STATUS. PT'S VSS. PT RESTING COMFORTABLY. PT HAS LITTLE SECRETIONS. PT TOLERATING VENT WELL AND EASY TO SUCTION ET TUBE. INFORMED ME NOT TO DO A VENT WEANING TRIAL OR SEDATION VACATION IN THE AM. OK TO CONTINUE SEDATION. STATES HE WILL ASSESS IN THE AM REGARDING VENT STATUS. RT NOTIFIED OF ABOVE. WILL CONTINUE TO MONITOR.
[2019-10-22] VITALS (1316 sets, daily range): BP systolic 127–159; BP diastolic 80–89; PULSE 51–63; TEMP 97.1–98.9; O2SAT 72–100
--- NOTE | 2019-10-22 05:00 | NUR ---
PT OPENS EYES TO VOICE. PT ABLE TO FOLLOW SOME COMMANDS SUCH OPEN YOUR MOUTH AND CASTING MACHINE SET UP OPERATOR WITH BILATERAL HANDS. PT UNABLE TO WIGGLE TOES TO COMMAND OR LIFT EXTREMITIES TO COMMAND. PT APPEARS MORE AWAKE AND WATCHING TV THAN OVER NIGHT. WILL CONTINUE TO MONITOR.
[2019-10-22 05:22] LABS: ARTERIAL BLD GAS O2 SATURATION 97.2 % (92-100); ARTERIAL BLOOD GAS BASE EXCESS -1.1 (-2-2); ARTERIAL BLOOD GAS PCO2 31.1 mmHg (35-45); ARTERIAL BLOOD GAS PO2 100.9 mmHg (80-100); ARTERIAL BLOOD GAS pH 7.47 (7.35-7.45)
--- NOTE | 2019-10-22 06:19 | NUR ---
PT HAS BEEN SB IN THE 50'S MOST OF THE NIGHT. PT DIPPED TO 47 BUT BACK UP TO THE 50'S. PT STILL OPENING EYES TO VOICE. FENT DECREASED.
[2019-10-22 06:26] LABS: CALCIUM 7.9 mg/dL (8.4-10.2); CREATININE, serum 3.45 (0.52-1.25); MAGNESIUM 2.2 mg/dL (1.6-2.3); PHOSPHOROUS 3.2 mg/dL (2.5-4.5); POTASSIUM 3.3 mmol/L (3.4-5.0)
--- NOTE | 2019-10-22 06:37 | NUR ---
PT'S HR STILL OCCASIONALLY DIPPING TO 48 BUT THEN BACK TO THE LOW 50'S. PT STILL OPENS EYES AND RESPONDS TO VOICE. FENT PUT ON STANDBY. WILL CONTNIUE TO MONITOR AND RESTART IF ABLE AND NEEDED.
[2019-10-22 18:38] LABS: ARTERIAL BLD GAS O2 SATURATION 95.6 % (92-100); ARTERIAL BLD GAS TCO2 CT 21.6; ARTERIAL BLOOD GAS BASE EXCESS -2.2 (-2-2); ARTERIAL BLOOD GAS HCO3 20.7 meq/L (22-26); ARTERIAL BLOOD GAS PCO2 28.9 mmHg (35-45); ARTERIAL BLOOD GAS pH 7.47 (7.35-7.45)
[2019-10-23] VITALS (1276 sets, daily range): BP systolic 138–170; BP diastolic 82–95; PULSE 49–69; TEMP 98–99.8; O2SAT 94–100
[2019-10-23 04:20] LABS: MEAN CELL VOLUME 89 fl (80.0-100.0); MEAN CORPUSCULAR HGB CONC 32 g/dl (33.0-37.0); MEAN PLATELET VOLUME 9.8 fl (7.4-10.4); PLATELET COUNT 323 K/mm3 (130-400); RED BLOOD COUNT 2.93 M/mm3 (4.10-5.30); REDCELL DISTRIBUTION WIDTH-CV 14.6 % (11.5-14.5)
[2019-10-23 04:23] LABS: HEMATOCRIT 26.2 % (37.0-47.0); HEMOGLOBIN 8.5 g/dl (12.5-16.0); MEAN CORPUSCULAR HEMOGLOBIN 29 pg (27.0-31.0)
[2019-10-23 04:30] LABS: ALBUMIN 2.3 gm/dL (3.5-5.0); BILIRUBIN,TOTAL 0.5 mg/dL (0.0-1.0); CALCIUM 8.4 mg/dL (8.4-10.2); CREATININE, serum 3.11 (0.52-1.25); MAGNESIUM 2.1 mg/dL (1.6-2.3); PHOSPHOROUS 2.7 mg/dL (2.5-4.5); POTASSIUM 3.4 mmol/L (3.4-5.0)
[2019-10-23 04:37] LABS: PRE ALBUMIN 24.5 mg/dL (17.6-36.0)
[2019-10-23 04:57] LABS: BAND 18 % (0-10); LYMPHOCYTE 1 % (20.0-51.0); METAMYELOCYTE 5 % (0-0); MYELOCYTE 1 % (0-0); NEUTROPHILS 71 % (42.0-75.2); PLATELET ESTIMATE NORMAL (NORMAL)
--- NOTE | 2019-10-23 05:13 | NUR ---
NO SEDATION CURRENTLY RUNNING.
[2019-10-23 05:33] LABS: ARTERIAL BLD GAS O2 SATURATION 96.5 % (92-100); ARTERIAL BLD GAS TCO2 CT 25.1; ARTERIAL BLOOD GAS BASE EXCESS 1.7 (-2-2); ARTERIAL BLOOD GAS HCO3 24.1 meq/L (22-26); ARTERIAL BLOOD GAS PCO2 29.9 mmHg (35-45); ARTERIAL BLOOD GAS PO2 82.9 mmHg (80-100); ARTERIAL BLOOD GAS pH 7.53 (7.35-7.45)
--- NOTE | 2019-10-23 07:05 | NUR ---
Report received from Ignacio RUCKER and care resumed.
--- NOTE | 2019-10-23 07:40 | NUR ---
Dr Soto in to see pt.
[2019-10-23 08:00] LABS: PATHOLOGY DIFF REVIEW OK
--- NOTE | 2019-10-23 10:08 | NUR ---
Dr Zaragoza called for update on pt. Pt to CT scan at 0935 and returned at 1000. Tolerated well. Dr Mendoza in to see pt. Will continue to follow.
[2019-10-23 10:36] LABS: ARTERIAL BLD GAS O2 SATURATION 96.5 % (92-100); ARTERIAL BLD GAS TCO2 CT 23.4; ARTERIAL BLOOD GAS BASE EXCESS 0.2 (-2-2); ARTERIAL BLOOD GAS HCO3 22.5 meq/L (22-26); ARTERIAL BLOOD GAS PCO2 28.7 mmHg (35-45); ARTERIAL BLOOD GAS PO2 85.9 mmHg (80-100); ARTERIAL BLOOD GAS pH 7.51 (7.35-7.45)
--- NOTE | 2019-10-23 11:41 | NUR ---
Data Entry Associate faxed updates to [facility] and to [facility]. SW to continue to follow.
--- NOTE | 2019-10-23 13:05 | NUR ---
Dr Alcala, ultrasound, and anesthesia at bedside for JEANNA. Time out performed at bedside. Pt tolerated procedure well. Will continue to follow.
--- NOTE | 2019-10-23 17:00 | NUR ---
Pt not on sedation at this time, no vacation needed.
--- NOTE | 2019-10-23 19:24 | NUR ---
Report given to Ignacio RUCKER and Nancy RUCKER. Will continue to follow.
[2019-10-24] VITALS (1188 sets, daily range): BP systolic 132–152; BP diastolic 83–97; PULSE 54–68; TEMP 98.1–98.9; O2SAT 90–100
[2019-10-24 05:44] LABS: ARTERIAL BLD GAS O2 SATURATION 96.4 % (92-100); ARTERIAL BLD GAS TCO2 CT 22.9; ARTERIAL BLOOD GAS BASE EXCESS -0.3 (-2-2); ARTERIAL BLOOD GAS PO2 88.6 mmHg (80-100); ARTERIAL BLOOD GAS pH 7.51 (7.35-7.45)
[2019-10-24 06:15] LABS: MEAN CELL VOLUME 91 fl (80.0-100.0); MEAN CORPUSCULAR HGB CONC 32 g/dl (33.0-37.0); MEAN PLATELET VOLUME 9.5 fl (7.4-10.4); PLATELET COUNT 309 K/mm3 (130-400); RED BLOOD COUNT 2.85 M/mm3 (4.10-5.30); REDCELL DISTRIBUTION WIDTH-CV 14.7 % (11.5-14.5)
[2019-10-24 06:17] LABS: HEMATOCRIT 25.9 % (37.0-47.0); HEMOGLOBIN 8.3 g/dl (12.5-16.0); MEAN CORPUSCULAR HEMOGLOBIN 29 pg (27.0-31.0)
--- NOTE | 2019-10-24 06:18 | NUR ---
PT NOT ON ANY SEDATION.
[2019-10-24 06:24] LABS: CALCIUM 8.6 mg/dL (8.4-10.2); CREATININE, serum 2.7 (0.52-1.25); POTASSIUM 3.3 mmol/L (3.4-5.0)
[2019-10-24 07:20] LABS: BAND 15 % (0-10); EOSINOPHIL 1 % (0-4); LYMPHOCYTE 3 % (20.0-51.0); METAMYELOCYTE 2 % (0-0); MICROCYTOSIS 1+; MYELOCYTE 2 % (0-0); NEUTROPHILS 75 % (42.0-75.2); OVALOCYTES 1+; PLATELET ESTIMATE NORMAL (NORMAL)
[2019-10-24 08:19] LABS: ARTERIAL BLOOD GAS PCO2 33.5 mmHg (35-45); ARTERIAL BLOOD GAS PO2 80.7 mmHg (80-100); ARTERIAL BLOOD GAS pH 7.51 (7.35-7.45)
--- NOTE | 2019-10-24 08:40 | NUR ---
PT EXTUBATED BY RT PER 'S ORDER. PT PLACED ON NC. PT'S VSS. PT TOLERATED WELL. OG TUBE REMOVED AND RESTRAINTS DC'D. WILL CONTINUE TO MONITOR.
--- NOTE | 2019-10-24 08:40 | NUR ---
Pt extubated, per Dr. Soto, to 4 LPM NC without complication. RN present for extubation, OG remained in place. Bilateral BS, no stridor noted, 97%, HR 80, RR 18 post extubation.
--- NOTE | 2019-10-24 10:00 | NUR ---
PICC intact right upper arm. With sterile technique right upper arm PICC dressing change done with insertion site cleansed with ChloraPrep 1, chlorhexidine impregnated disc applied, skin prep, StatLock, and Tegaderm applied. No signs or symptoms of IV complications noted. No concerns voiced arm wrapped with Callum to protect catheter.
--- NOTE | 2019-10-24 13:35 | NUR ---
Attempted NG tube placement X3 by two differnt RN's. Unable to place d\t pt unable to follow commands to swallow. notified. Awaiting further orders. Family updated.
[2019-10-24 13:42] LABS: ARTERIAL BLD GAS O2 SATURATION 94.9 % (92-100); ARTERIAL BLD GAS TCO2 CT 24.5; ARTERIAL BLOOD GAS BASE EXCESS 1.1 (-2-2); ARTERIAL BLOOD GAS HCO3 23.5 meq/L (22-26); ARTERIAL BLOOD GAS PCO2 29.9 mmHg (35-45); ARTERIAL BLOOD GAS PO2 73.7 mmHg (80-100); ARTERIAL BLOOD GAS pH 7.51 (7.35-7.45)
--- NOTE | 2019-10-24 14:13 | NUR ---
Pt's potassium has remained low over that past few days even with potassium replacement with the low GFR protocol. Called to clarify if he would like to switch to the normal GFR protocol. He does not want to change at this time. Will continue with Potassium low GFR protocol.
--- NOTE | 2019-10-24 19:30 | NUR ---
Bedside report received from CAHIM Rivers. All lines and medications reviewed. Family at bedside. Patient resting in bed on room air. Turned patient and small/trace BM noted. Cleaned with personal cleansing cloths. Transfer of care at this time.
--- NOTE | 2019-10-24 20:00 | NUR ---
Patient continues to rest in bed watching TV. Family has left for the night. Patient is alert, but not able to test orientation as patient is nonverbal dementia and cannot reply. Patient does squeeze hands when asked, but is weak. Assessment complete. Patient's lung are clear in all costello with diminished bases. HR and rhythm are regular with normal S1 and S2 heard. Bowel sounds are active now in all quadrants. Patient's jimenez is patent and emptying pale yellow urine. Peripheral pulses are palpable in all extremities. Patient does not appear to be in any distress or pain. Will continue to monitor. Call light within reach.
[2019-10-25] VITALS (526 sets, daily range): BP systolic 117–171; BP diastolic 50–96; PULSE 58–82; TEMP 97.8–99.5; O2SAT 92–100
--- NOTE | 2019-10-25 | NUR ---
Patient continues to rest in bed. No signs of distress or pain. Repositioned for comfort. Assessment complete with no changes from previous exam. Vitals obtained and remain stable. Patient continues to have urine output of 300ml+ per hour. Will continue to monitor. Call light within reach.
--- NOTE | 2019-10-25 04:00 | NUR ---
Patient asleep at this time. Vitals obtained and remain stable. Repositioned for comfort. Assessment complete. No changes from previous exam. No signs of distress or pain. Will continue to monitor. Call light within reach.
[2019-10-25 05:08] LABS: ARTERIAL BLD GAS O2 SATURATION 93.2 % (92-100); ARTERIAL BLD GAS TCO2 CT 25.7; ARTERIAL BLOOD GAS BASE EXCESS 2.4 (-2-2); ARTERIAL BLOOD GAS HCO3 24.8 meq/L (22-26); ARTERIAL BLOOD GAS PCO2 30.6 mmHg (35-45); ARTERIAL BLOOD GAS PO2 63.2 mmHg (80-100); ARTERIAL BLOOD GAS pH 7.53 (7.35-7.45)
[2019-10-25 06:40] LABS: MEAN CELL VOLUME 90 fl (80.0-100.0); MEAN CORPUSCULAR HGB CONC 32 g/dl (33.0-37.0); MEAN PLATELET VOLUME 9.9 fl (7.4-10.4); PLATELET COUNT 359 K/mm3 (130-400); RED BLOOD COUNT 3.05 M/mm3 (4.10-5.30); REDCELL DISTRIBUTION WIDTH-CV 14.8 % (11.5-14.5)
[2019-10-25 06:47] LABS: ALBUMIN 2.4 gm/dL (3.5-5.0); BILIRUBIN,TOTAL 0.5 mg/dL (0.0-1.0); CALCIUM 8.8 mg/dL (8.4-10.2); CREATININE, serum 2.58 (0.52-1.25); POTASSIUM 3.8 mmol/L (3.4-5.0); TOTAL PROTEIN 5.2 gm/dL (6.4-8.2)
[2019-10-25 06:48] LABS: HEMATOCRIT 27.5 % (37.0-47.0); HEMOGLOBIN 8.9 g/dl (12.5-16.0); MEAN CORPUSCULAR HEMOGLOBIN 29 pg (27.0-31.0)
--- NOTE | 2019-10-25 07:12 | NUR ---
Bedside report given to CHAIM Collier
--- NOTE | 2019-10-25 08:01 | NUR ---
Vancomycin Follow-up Pharmacy Note Current regimen: Vancomycin 500 mg IV q24h Vancomycin trough: 13.22 Adjustments: Will increase Vancomycin to 750 mg IV q24h as trough subtherapeutic for goal of ~15-20. Pharmacy will continue to monitor.
--- NOTE | 2019-10-25 08:20 | NUR ---
DR MARTIN PRESENT TO PLACE NGT UNDER FLUORO. 14F NGT PLACED TO RIGHT NARES. PATIENT TOLERATED WELL. XRAY DONE TO VERIFY PLACEMENT.
--- NOTE | 2019-10-25 09:42 | NUR ---
(late entry 10/24) PURIFICATION DIRECTOR student faxed updates to [facility] and to [facility]. Social service will continue to follow.
[2019-10-25 09:45] LABS: BAND 19 % (0-10); LYMPHOCYTE 6 % (20.0-51.0); METAMYELOCYTE 5 % (0-0); NEUTROPHILS 68 % (42.0-75.2); OVALOCYTES 1+; PLATELET ESTIMATE NORMAL (NORMAL)
--- NOTE | 2019-10-25 10:14 | NUR ---
REPORT CALLED LEONIDES RUCKER ON SURGICAL UNIT.
--- NOTE | 2019-10-25 10:35 | NUR ---
PATIENT'S CALLED AND NOTIFIED OF TRANSFER. PATIENT TRANSFERRED VIA BED. PATIENT'S BELONGINGS TRANSFERRED WITH PATIENT. CONTACT MADE WITH NURSING STAFF UPON TRANSFER.
--- NOTE | 2019-10-25 10:39 | NUR ---
ASSOCIATE ORACLE RETAIL student faxed updates to [facility] and to [facility]. The patient moved to surgical floor this day. imaging services director will continue to follow.
--- NOTE | 2019-10-25 13:45 | NUR ---
SLEEPING, FAMILY AT BEDSIDE
--- NOTE | 2019-10-25 16:27 | NUR ---
Manufacturer Agent was contacted by Anju at [facility]. SW advised patient moved to Surgical floor. SW advised [employer] recommended exploring [facility] hospital stay. SW will continue to provide updates.
--- NOTE | 2019-10-25 18:36 | NUR ---
Patient has done okay since arrival from ICU. Atttentive family at bedside. Patient nonverbal, facial expressions seen. Appeared in pain, dose of IV morphine given. Notified hospitalist. Tpn via picc per dietary orders. IV antibioitcs per orders. Ng tube feeding trial per dietary orders resumed. Had stopped this afternoon per once patient seemed in pain. Patient has had multiple episodes of loose incontinent stool, pericare provided as well as jimenez care. Air mattress applied to bed to prevent skin breakdown. Q2 turns. Vss on room air. Bedside soumya for oral suctioning. Scds ble. She remains NPO, attempted to provide oral hygiene. She bite swab. REport to night nurse
--- NOTE | 2019-10-25 21:30 | NUR ---
Patient in bed, restless. Facial grimacing noted. SBP 171. Prn pain medication given via PICC. Will reassess pain. NG tube residual checked. 5ml noted, and refed. Tube feeding increased from 6ml to 10ml/hr per order. Repositioned patient to right side with pillows. Mitt on left hand per family request, d/t patient frequently pulling at tubes. Appears comfortable. Will continue to assess.
--- NOTE | 2019-10-25 22:09 | NUR ---
REPORT RECEIVED FROM DAY SHIFT NURSE. PATIENT LAYING IN BED WITH FAMILY AT BEDSIDE, OBSERVED INTERMITTENT GRIMACING OF FACE, PATIENT WITH HISTORY OF BEING NONVERBAL DUE TO NEUROLOGICAL HISTORY.
--- NOTE | 2019-10-25 23:30 | NUR ---
Right nare NG tube observed. 65 robbi appears to be slightly out of place. Tube feeding stopped. Auscultated abdomen while instilling 30ml air into tube. Able to hear air upon auscultating abdomen. Tape still intact on nose. Feeding restarted. Will continue to monitor.
[2019-10-26] VITALS (7 sets, daily range): BP systolic 131–169; BP diastolic 84–98; PULSE 77–98; TEMP 98.3–100.3
--- NOTE | 2019-10-26 05:15 | NUR ---
TPN paused for 10 minutes prior to labs being drawn per protocol.
--- NOTE | 2019-10-26 05:30 | NUR ---
Patient in bed, awake. Appears comfortable. No facial grimacing noted. Labs drawn via PICC per protocol. Patient tolerated well. Will continue to monitor.
[2019-10-26 06:08] LABS: MEAN CELL VOLUME 92 fl (80.0-100.0); MEAN CORPUSCULAR HGB CONC 31 g/dl (33.0-37.0); MEAN PLATELET VOLUME 9.9 fl (7.4-10.4); PLATELET COUNT 362 K/mm3 (130-400); RED BLOOD COUNT 3.35 M/mm3 (4.10-5.30); REDCELL DISTRIBUTION WIDTH-CV 14.9 % (11.5-14.5)
[2019-10-26 06:11] LABS: HEMATOCRIT 30.7 % (37.0-47.0); HEMOGLOBIN 9.6 g/dl (12.5-16.0); MEAN CORPUSCULAR HEMOGLOBIN 29 pg (27.0-31.0)
[2019-10-26 06:29] LABS: CALCIUM 8.8 mg/dL (8.4-10.2); CREATININE, serum 2.64 (0.52-1.25); POTASSIUM 3.8 mmol/L (3.4-5.0)
--- NOTE | 2019-10-26 06:41 | NUR ---
CHANGED NG NOSE TAPE/DRSG.
--- NOTE | 2019-10-26 07:49 | NUR ---
Bedside report from Giselle, RNs. Pt in bed with alarm on, HOB eleavated at 30* with tube feed via NG- secured to nares at "65", TPN and abx via PICC to RUE, jimenez to DD with pale yellow clear urine, statlock in place. Depends in place, pillows for positioning toward right side, mitt on left hand, pt non-verbal but makes eye contact and tracks staffs' movements about room. Umbilical incision and two lap sites CDI with edges approximated. Pt in NAD.
[2019-10-26 08:09] LABS: BAND 20 % (0-10); EOSINOPHIL 2 % (0-4); LYMPHOCYTE 4 % (20.0-51.0); METAMYELOCYTE 1 % (0-0); NEUTROPHILS 71 % (42.0-75.2); PLATELET ESTIMATE NORMAL (NORMAL)
--- NOTE | 2019-10-26 11:00 | NUR ---
Pt given morphine for facial grimacing. Pt was also making sounds like refluxing or trying to swallow after oral cares were performed, lip moisturizer applied. Pt coughing, suctioned with janker and produced sm amount white phlegm. PICC without complications. SCDs to BLE, air mattress in place. Mitt to L hand, yellow gown and gripper socks in place, HOB @ 60, pt returned to sleep. Bairon palencia DD.
--- NOTE | 2019-10-26 11:30 | NUR ---
Per Dr. Soto and Butch request, called Dr. Buenrostro to discuss their recommendations. See new orders to start IVF, stop TPN, and increase TF.
--- NOTE | 2019-10-26 11:36 | NUR ---
Increased TF rate to 20 ml/hr per dietary, who recommends increase to 30 ml/hr at 2000 if caitlin.
--- NOTE | 2019-10-26 11:50 | NUR ---
317 ml TPN given this shift prior to stopping.
--- NOTE | 2019-10-26 17:12 | NUR ---
Lots of family visiting, questions answered to best of ability.
--- NOTE | 2019-10-26 17:25 | NUR ---
45 ml residual from NG while rate is at 20 ml/hr with 200 ml flushes q4hr.
--- NOTE | 2019-10-26 20:10 | NUR ---
Bedside report to CHAIM Ramos orientee and CHAIM Chowdhury. Pt's family visiting. After shift change, residual 100 ml yellow clear fluid, returned per NG and increased TF rate to 30 ml/hr, continue flushes of 200 ml water q4hr. Reported this to Rachel and Luciana. Turned bed alarm on, call lt in reach, ashia to L hand, SCDs to BLE, air mattress in place, jimenez to DD.
--- NOTE | 2019-10-26 20:53 | NUR ---
PATIENT RESTING IN BED, CONTINUES TO BE NONVERBAL DUE TO H/O NEUROLOGICAL PROBLEM. FAMILY AT BEDSIDE DURING SHIFT CHANGE REPORT. NOTED NO OUTWARD SIGNS OF GRIMACING/DISCOMFORT. CURRENTLY NO FAMILY PRESENT, MITT TO LEFT HAND. BREATHES UNRESTRICTED BUT SHALLOW, DOES NOT FOLLOW COMMANDS TO COUGH/DEEP BREATHE.
[2019-10-26 21:13] LABS: 12 HR URINE TOTAL VOLUME 3.35 L
--- NOTE | 2019-10-26 23:25 | NUR ---
RECEIVED CALL FROM INFECTIOUS DIS PROVIDER WITH NO NEW ORDERS GIVEN AFTER INFORMED OF UPDATED STATUS.
[2019-10-27] VITALS (7 sets, daily range): BP systolic 137–167; BP diastolic 85–103; PULSE 72–90; TEMP 97.3–100.4
--- NOTE | 2019-10-27 00:14 | NUR ---
OBSERVED WITH REPOSITIONS AND INCONTINENT CARE, REDNESS AROUND RECTUM DUE TO INCONTINENT SMALL DARK GREEN BM, APPLIED BARRIER CREAM TO MAINTAIN SKIN INTEGRITY.
--- NOTE | 2019-10-27 01:37 | NUR ---
TEMP RECHECKED AT 100.4 DEGREES AX, DEEPIKA UPPER LUNG DICK AUSC CLEAR WITH DEEPIKA LOWER LUNG DICK DIMINISHED WITH PATIENT UNABLE TO COUGH/DEEP BREATHE ON COMMAND. INFORMED KARISHMA JEAN OF [facility], ORDERS GIVEN.
--- NOTE | 2019-10-27 02:09 | NUR ---
ATTEMPTED ORAL SUCTION WHEN TYLENOL SOLN ADMINISTERED WITH TF STOPPED VIA NG TUBE, OBSERVED SCANT AMOUNT WITH TIP OF ORAL SUCTION TIP AND PATIENT RESISTED ANY FURTHER ATTEMPTS TO ORAL SUCTION MORE. ORAL CARE PERFORMED WITH PATIENT BITING DOWN ON TOOTHETTES, LIPS MOISTURIZED THAT PATIENT ALLOWED.
--- NOTE | 2019-10-27 04:01 | NUR ---
Awakens at time from sleeping, continues to be nonverbal due to neurological history. Tube feeding continues via NG tube without problems. HOB up at 30 degrees due to TF protocol. No facial grimacing observed, skin warm, dry. Bed in low position.
[2019-10-27 06:48] LABS: BASO % 0.2 % (0.0-2.0); EOS # 0.2 (0.0-0.7); EOS % 1.8 % (0-4.0); GRAN # 11.8 (1.4-6.5); GRAN % 88.8 % (42.2-75.2); LYMPH # 0.6 (1.2-3.4); LYMPH % 4.4 % (20.0-51.0); MEAN CELL VOLUME 93 fl (80.0-100.0); MEAN CORPUSCULAR HGB CONC 32 g/dl (33.0-37.0); MEAN PLATELET VOLUME 10.3 fl (7.4-10.4); MONO # 0.4 (0.1-0.6); MONO % 2.9 % (1.7-9.3); PLATELET COUNT 321 K/mm3 (130-400); RED BLOOD COUNT 3.12 M/mm3 (4.10-5.30); REDCELL DISTRIBUTION WIDTH-CV 15.2 % (11.5-14.5)
[2019-10-27 06:52] LABS: HEMATOCRIT 28.9 % (37.0-47.0); HEMOGLOBIN 9.1 g/dl (12.5-16.0); MEAN CORPUSCULAR HEMOGLOBIN 29 pg (27.0-31.0)
[2019-10-27 07:05] LABS: CALCIUM 8.6 mg/dL (8.4-10.2); CREATININE, serum 2.7 (0.52-1.25); MAGNESIUM 1.9 mg/dL (1.6-2.3); POTASSIUM 3.1 mmol/L (3.4-5.0)
--- NOTE | 2019-10-27 07:26 | NUR ---
PATIENT TOLERATED ORAL SUCTIONING DURING SHIFT CHANGE REPORT TO DAY NURSE, OBSERVED ORAL SECRETIONS SUCTIONED WHITISH TO CLEAR WITH PATIENT AT TIMES BITING DOWN ON ORAL SUCTIONS CATHETER. TUBE FEEDING CONTINUES VIA NG TUBE AND IVF CONTINUE VIA RUE PICC SITE.
--- NOTE | 2019-10-27 09:14 | NUR ---
Hospitalist is recommending patient go to LTAC. SW contacted the patient's daughter, to discuss this option. The patient's family will be here later today to discuss options. director of perioperative services will continue to follow.
--- NOTE | 2019-10-27 15:54 | NUR ---
The family chose [facility] in [place], [place]. WILIAN contacted Nima and he will visit with the family and patient on Wednesday. WILIAN faxed referral. guest services director will continue to follow.
--- NOTE | 2019-10-27 17:25 | NUR ---
Patient resting in bed. Family at bedside. Patient noted to be coughing more this afternoon, Residuals rechecked 650ml noted- notifed & made aware as well. Tube feeding held & free malcolm continued. Patient continues to have loose stools, pericare & jimenez care provded. barrier cream applied, new briefs & fresh linens as needed. Cdiff negative. Adequate pale yellow urine output. Picc to RUE. Scds ble, edema noted.
--- NOTE | 2019-10-27 18:51 | NUR ---
Patient resting in bed. NG tube residual 35ml. Patient has no incontinence this evening. Clean & dry, patient repositioned. her family at bedside. K+ per orders per redraw protocol.
--- NOTE | 2019-10-27 22:54 | NUR ---
Telemetry notified this nurse that patient had a run of PAT at 2230. BP: 162/103, P: 83, T: 99.3, R: 18, O2: 95%. TED Ace notified and wants notified if her blood pressure continues to increase. Will continue to monitor.
[2019-10-28 00:29] VITALS: BP 153/103; PULSE 84; TEMP 100.4
[2019-10-28 03:30] VITALS: BP 159/94; PULSE 95; TEMP 98.9
[2019-10-28 04:12] LABS: BASO % 0.1 % (0.0-2.0); EOS # 0.2 (0.0-0.7); EOS % 1.6 % (0-4.0); GRAN # 12.1 (1.4-6.5); GRAN % 89.2 % (42.2-75.2); LYMPH # 0.7 (1.2-3.4); LYMPH % 5.2 % (20.0-51.0); MEAN CELL VOLUME 93 fl (80.0-100.0); MEAN CORPUSCULAR HGB CONC 31 g/dl (33.0-37.0); MEAN PLATELET VOLUME 9.9 fl (7.4-10.4); MONO # 0.4 (0.1-0.6); MONO % 2.9 % (1.7-9.3); PLATELET COUNT 283 K/mm3 (130-400); RED BLOOD COUNT 3.14 M/mm3 (4.10-5.30); REDCELL DISTRIBUTION WIDTH-CV 14.8 % (11.5-14.5)
[2019-10-28 04:13] LABS: ALBUMIN 2.8 gm/dL (3.5-5.0); BILIRUBIN,TOTAL 0.5 mg/dL (0.0-1.0); CALCIUM 8.7 mg/dL (8.4-10.2); CREATININE, serum 2.65 (0.52-1.25); MAGNESIUM 1.9 mg/dL (1.6-2.3); TOTAL PROTEIN 5.9 gm/dL (6.4-8.2)
[2019-10-28 04:20] LABS: HEMATOCRIT 29.1 % (37.0-47.0); HEMOGLOBIN 9.1 g/dl (12.5-16.0); MEAN CORPUSCULAR HEMOGLOBIN 29 pg (27.0-31.0)
--- NOTE | 2019-10-28 06:24 | NUR ---
Potassium 3.0. Replacement protocol initiated and 20mEq given. Will recheck level at 0845am. Residual at 0330 was 550ml of [place] green liquid. TED Ace notified and ordered to stop water infusion and recheck residual at 0600. Residual at 0600 was 100ml of dark green liquid. Repositioned q2 throughout the night. One episode of diarrhea, but otherwise clean and dry. Catheter continues to drain yellow urine. Will report off to day shift nurse.
--- NOTE | 2019-10-28 07:00 | NUR ---
Report received from CHAIM Arndt. PT in bed resting, on ride side, denies needs, alarm on, will continue to monitor.
[2019-10-28 08:00] VITALS: BP 150/99; PULSE 87; TEMP 99.7
--- NOTE | 2019-10-28 10:00 | NUR ---
Assessment charted. Pt has NG at 65 cm clamped, 55 cc's of light green fluid aspirated, gave free water of 250 mls per NIKKI Ames with hospitalist. Oral care provided. Waddell draining clear yellow urine. Turned to Left side. PICC to CORY good blood return and flushes well. Will continue to monitor.
[2019-10-28 12:02] VITALS: BP 148/95; PULSE 83; TEMP 98.3
[2019-10-28 15:34] VITALS: BP 158/105; PULSE 92; TEMP 97.9
--- NOTE | 2019-10-28 17:51 | NUR ---
Pt has had good day. Family has been here since the afternoon and state they feel she is more alert today. Turned q2h for comfort, remains on air mattress. Called hospitalist with residuals found each time today when checking NG, she is now NPO with no tube feedings or free water. Changed IVF. Pt otherwise doing well, coughing often in room, tried to suction a few times but unable to get much out. Family at bedside, alarm and mitts on per family request so she doesn't pull out NG. Will give bedside shift report to nightshift nurse who will resume care.
[2019-10-28 21:41] VITALS: BP 148/93; PULSE 100; TEMP 98.1
[2019-10-29 00:43] VITALS: BP 145/103; PULSE 94; TEMP 99.6
[2019-10-29 04:51] VITALS: BP 154/93; PULSE 80; TEMP 98.6
--- NOTE | 2019-10-29 06:30 | NUR ---
PT HAS RESTED QUIETLY DURING THE NIGHT. PT HAD NG RESIDUAL OF 30mL AROUND MIDNIGHT AND 55 mL AROUND 0500 THIS MORNING. RESIDUAL APPEARED TO BE VERY BILE-KAZ, DEEP GREEN IN COLOR.
[2019-10-29 06:31] LABS: BASO % 0.1 % (0.0-2.0); EOS # 0.2 (0.0-0.7); EOS % 1.7 % (0-4.0); GRAN # 9.6 (1.4-6.5); GRAN % 85.4 % (42.2-75.2); LYMPH # 0.9 (1.2-3.4); LYMPH % 7.9 % (20.0-51.0); MEAN CELL VOLUME 93 fl (80.0-100.0); MEAN CORPUSCULAR HGB CONC 31 g/dl (33.0-37.0); MEAN PLATELET VOLUME 10.5 fl (7.4-10.4); MONO # 0.5 (0.1-0.6); MONO % 4.4 % (1.7-9.3); PLATELET COUNT 287 K/mm3 (130-400); RED BLOOD COUNT 3.24 M/mm3 (4.10-5.30); REDCELL DISTRIBUTION WIDTH-CV 14.6 % (11.5-14.5)
[2019-10-29 06:37] LABS: HEMOGLOBIN 9.4 g/dl (12.5-16.0); MEAN CORPUSCULAR HEMOGLOBIN 29 pg (27.0-31.0)
--- NOTE | 2019-10-29 07:00 | NUR ---
Report received from CHAIM Mcfadden. PT in bed resting with eyes closed, will continue to monitor.
[2019-10-29 08:49] VITALS: BP 157/97; PULSE 85; TEMP 98.6
--- NOTE | 2019-10-29 10:42 | NUR ---
Assessment charted. PT doing well, able to sit at side of bed with PT unassisted, stood for several minutes at bedside with 1 person assist. Residual checked and it was 140ccs. Looks comfortable, no signs of pain. Bed alarm on, mitts removed for PT and replaced per family as she is "liable to pull out NG". PICC to CORY flushes well and good blood return. Will continue to monitor.
[2019-10-29 12:25] LABS: CREATININE, serum 2.66 (0.52-1.25); POTASSIUM 3.4 mmol/L (3.4-5.0)
[2019-10-29 13:04] LABS: BILIRUBIN,TOTAL 0.4 mg/dL (0.0-1.0); PHOSPHOROUS 3.6 mg/dL (2.5-4.5); TOTAL PROTEIN 6.3 gm/dL (6.4-8.2)
[2019-10-29 13:12] LABS: PRE ALBUMIN 27.4 mg/dL (17.6-36.0)
[2019-10-29 15:00] VITALS: BP 154/98; PULSE 92; TEMP 98.4
--- NOTE | 2019-10-29 17:14 | NUR ---
Pt has done well today. Family at bedside, mitts off for family visiting, doing well, she is alert and watchful. Will give bedside shift report to CHAIM Jacobsen who will resume care.
[2019-10-29 19:41] VITALS: BP 155/99; PULSE 95; TEMP 98.4
[2019-10-30] VITALS (291 sets, daily range): BP systolic 59–154; BP diastolic 34–101; PULSE 96–124; TEMP 97.9–99.8; O2SAT 70–100
--- NOTE | 2019-10-30 02:00 | NUR ---
PT PULLED OFF ONE OF HER MITTS AND THEN PULLED OUT HER NG INTERMEDIATE. NG WAS ABLE TO BE RE-INSERTED. PLACEMENT CHECKED BY AUSCULTATION. CONTENTS ASPIRATED Q 6 HOURS HAVE BEEN GREEN BILE IN APPEARANCE. A TOTAL OF 125 mL HAVE BEEN ASPIRATED THIS SHIFT.
[2019-10-30 07:30] LABS: BASO % 0.3 % (0.0-2.0); EOS # 0.2 (0.0-0.7); EOS % 1.8 % (0-4.0); GRAN # 9.3 (1.4-6.5); LYMPH # 1.2 (1.2-3.4); LYMPH % 10.5 % (20.0-51.0); MEAN CELL VOLUME 91 fl (80.0-100.0); MEAN CORPUSCULAR HGB CONC 31 g/dl (33.0-37.0); MEAN PLATELET VOLUME 10.6 fl (7.4-10.4); MONO # 0.6 (0.1-0.6); MONO % 4.8 % (1.7-9.3); PLATELET COUNT 279 K/mm3 (130-400); RED BLOOD COUNT 3.43 M/mm3 (4.10-5.30); REDCELL DISTRIBUTION WIDTH-CV 14.4 % (11.5-14.5)
--- NOTE | 2019-10-30 07:30 | NUR ---
Spoke with [facility] regbasimrding patient.
[2019-10-30 07:43] LABS: HEMATOCRIT 31.3 % (37.0-47.0); HEMOGLOBIN 9.8 g/dl (12.5-16.0); MEAN CORPUSCULAR HEMOGLOBIN 29 pg (27.0-31.0)
[2019-10-30 07:46] LABS: ALBUMIN 3.3 gm/dL (3.5-5.0); BILIRUBIN,TOTAL 0.4 mg/dL (0.0-1.0); CALCIUM 9.1 mg/dL (8.4-10.2); CREATININE, serum 2.46 (0.52-1.25); MAGNESIUM 2.1 mg/dL (1.6-2.3); PHOSPHOROUS 2.7 mg/dL (2.5-4.5); POTASSIUM 3.6 mmol/L (3.4-5.0); TOTAL PROTEIN 6.6 gm/dL (6.4-8.2)
[2019-10-30 07:53] LABS: PRE ALBUMIN 29.5 mg/dL (17.6-36.0)
--- NOTE | 2019-10-30 09:00 | NUR ---
PICC intact right upper arm. With sterile technique right upper arm PICC dressing change done with insertion site cleansed with ChloraPrep 1, chlorhexidine impregnated disc applied, skin prep, StatLock, and Tegaderm applied. No signs or symptoms of IV complications noted. Patient is nonverbal. Will continue to monitor.
--- NOTE | 2019-10-30 09:37 | NUR ---
The patient has been accepted to [facility] in [place], [place]. WILIAN gave updates to Nima with [facility]. director of medical staff services will continue to follow.
--- NOTE | 2019-10-30 09:40 | NUR ---
Patient sleepy this am. wakes with repositioning. Patient provided with complete bedbath with fresh linens. Waddell care provided, no incontence noted. Extensive oral care provided with bite block & oral suctioning. Scd ble. Repositioned. Picc to Rue- Tpn per order, flushes well & blood return noted.
--- NOTE | 2019-10-30 10:40 | NUR ---
Therapy at bedside, patient sitting at bedside with assist,productive cough noted. Oral suctioning provided. thick mucus noted. Ng retaped to nose, 65cm noted. Patient repositioned in bed.
--- NOTE | 2019-10-30 11:47 | NUR ---
The patient is to discharge this day, 10/30 to room 700 at [facility] [address] [facility] will transport at 1230. SW informed the team and patient's family, all were in agreeance. The receiving physician is Dr. Pruitt and nurse to nurse . Faxed discharge orders to . The patient was sleeping when the IM form was presented. The patient's and daughter, China understood and patient's signed the form. A copy was provided to the family and original was placed in the chart. There are no additional needs at this time.
--- NOTE | 2019-10-30 13:38 | NUR ---
Transfer to [facility] cancelled due to patient transfer to ICU. The patient's o2 sats dropped while preparing for transfer to [facility]. WILIAN contacted Nima with the update. Social serivce will continue to monitor.
--- NOTE | 2019-10-30 13:39 | NUR ---
PT INTUBATED PER DR. NGUYEN. PT HAD A RAPID DECLINE IN SATURATIONS. PT HAD A CT OF CHEST. #7.5 23@TEETH, GOOD CONSISTANT COLOR CHANGE ON CO2 DETECTOR. BREATH SOUNDS AUSCULTATED WITH MORE AERATION HEARD OVER LEFT. ALARMS SET AND FUNCTIONING. CXR AND REPEAT ABG PENDING.
--- NOTE | 2019-10-30 13:45 | NUR ---
Icu nurse to resume care, report given 1215-Grading Supervisor reports patient O2 sats 88%-Ems at bedside for [facility]. patient placed on o2, O2 sats not improving.patience with RT notified. She assist with care, attempted oral suctioning & oximask, o2 not improving. 1240-hospitalist notified, orders obtain, chest xray & abg. at bedside. Cat call completed. supervisor fish hatchery & Icu charge nurse at bedside 1255-Patient to Ct scan with Rt & 3Rns, Patient to Icu bed one after scan.
[2019-10-30 13:51] LABS: HEMOGLOBIN 10.6 g/dl (12.5-16.0); MEAN CELL VOLUME 90 fl (80.0-100.0); MEAN CORPUSCULAR HEMOGLOBIN 29 pg (27.0-31.0); MEAN CORPUSCULAR HGB CONC 32 g/dl (33.0-37.0); MEAN PLATELET VOLUME 9.9 fl (7.4-10.4); PLATELET COUNT 311 K/mm3 (130-400); RED BLOOD COUNT 3.64 M/mm3 (4.10-5.30); REDCELL DISTRIBUTION WIDTH-CV 14.4 % (11.5-14.5)
[2019-10-30 14:01] LABS: ALBUMIN 3.4 gm/dL (3.5-5.0); BILIRUBIN,TOTAL 0.6 mg/dL (0.0-1.0); CREATININE, serum 2.2 (0.52-1.25); MAGNESIUM 2.1 mg/dL (1.6-2.3); POTASSIUM 3.8 mmol/L (3.4-5.0); TOTAL PROTEIN 6.9 gm/dL (6.4-8.2)
[2019-10-30 14:12] LABS: INR 0.9 (0.8-3.0); PROTHROMBIN TIME 10.9 SECONDS (9.7-12.8)
[2019-10-30 14:14] LABS: PARTIAL THROMBOPLASTIN TIME 31.2 SECONDS (26.0-37.0)
[2019-10-30 14:18] LABS: TROPONIN-I 0.06 ng/mL (0.000-0.035)
[2019-10-30 14:27] LABS: HEMATOCRIT 32.9 % (37.0-47.0)
--- NOTE | 2019-10-30 14:40 | NUR ---
CALL RECEIVED FOR CAT CALL IN THIS PATIENT'S SURGICAL ROOM. 2 RNs AND 2 FILE DRAWER FINISHER. PATIENT IS IN RESPIRATORY DISTRESS. OXYMASK IN PLACE AT 15 L/MIN. SHE IS TACHYPNEIC, TACHYCARDIC, DIAPHORETIC, AND PALE IN COLOR. UNABLE TO GET ACCURATE SPO2 ON HER AT THIS TIME. ORDERS RECEIVED TO TAKE PATIENT TO ICU AFTER GETTING STAT CT SCAN OF CHEST. 1310: I CONFIRM CODE STATUS WITH PATIENT'S , FAISAL. HE STATES TO INTUBATE IF NECESSARY, BUT DO NOT DO COMPRESSIONS IF HER HEART WERE TO STOP. TATIANA, NATIONAL ACCOUNT MANAGER, PRESENT FOR THIS CONVERSATION. [address] WITH THIS RN, LUIZ FILE DRAWER FINISHER, AND JUNE RN FROM SURGICAL FLOOR. WE ENTER CT, PATIENT IS NO LONGER RESPONSIVE. PATIENT IS ASSISTED TO BREATH WITH BV MASK WHILE WE GET STAT CT. 1330: PATIENT ARRIVES TO ICU, DR. NGUYEN PRESENT 1334: SEDATION GIVEN 1339: PATIENT INTUBATED BY DR. NGUYEN WITH 7.5 ETT, PLACEMENT AND POSITION CONFIRMED. CALL FOR CHEST XRAY, STAT BLE US AND STAT ECHO. 1415: BRONCH PERFORMED BY DR. NGUYEN AT THIS TIME. 1430: PATIENT NOTED TO BE HYPOTENSIVE WITH BP 59/34, NS BOLUS STARTED. ORDERS RECEIVED FROM DR. MENDOZA WHO IS PRESENT 1435: LEVOPHED STARTED
[2019-10-30 14:42] LABS: BAND 15 % (0-10); EOSINOPHIL 1 % (0-4); LYMPHOCYTE 13 % (20.0-51.0); NEUTROPHILS 68 % (42.0-75.2); PLATELET ESTIMATE NORMAL (NORMAL)
--- NOTE | 2019-10-30 15:06 | NUR ---
Vancomycin Initial Dosing Pharmacy Note Ordering provider: Butch Indication/duration: [facility]CAP LABS: eCrCl 20 mL/min Recommendation: Loading dose: 1 gram 10/30/19 @ 1530 Maintenance dose: 500 mg Q24h starting 10/31/19 @ 0900 Trough goal: 15-20 ug/mL Will continue to follow.
[2019-10-30 15:31] LABS: ARTERIAL BLD GAS O2 SATURATION 99.5 % (92-100); ARTERIAL BLD GAS TCO2 CT 14.8; ARTERIAL BLOOD GAS BASE EXCESS -10.2 (-2-2); ARTERIAL BLOOD GAS PCO2 26.1 mmHg (35-45); ARTERIAL BLOOD GAS pH 7.35 (7.35-7.45)
[2019-10-30 15:32] LABS: ARTERIAL BLOOD GAS PO2 292.5 mmHg (80-100)
--- NOTE | 2019-10-30 17:21 | NUR ---
PATIENT OFF LEVOPHED SINCE 1549. SHE IS MAINTAINING GOOD BP WITH GOOD MAPs. SHE REMAINS SEDATED AND INTUBATED. FAMILY UPDATED ON PLAN OF CARE. THEY WILL TALK TONIGHT AND DECIDE IF THEY WANT TO DO TRACH/PEG TOMORROW. DR. BOSS AND DR. ADAMS NOTIFIED OF POSSIBLE NEED SURGERY TOMORROW.
--- NOTE | 2019-10-30 19:00 | NUR ---
REPORT GIVEN TO CHAIM IRIZARRY. ALL LINES, TUBES, VENT SETTINGS AND GTTS REVIEWED. TUBE FEEDS STARTED AT THIS TIME. CARE TURNED OVER AT THIS TIME.
--- NOTE | 2019-10-30 19:10 | NUR ---
BEDSIDE REPORT GIVEN TO CHAIM IRIZARRY. ALL LINES, TUBES, VENT SETTINGS, AND GTTS REVIEWED. PATIENT TURNED AT THIS TIME.
[2019-10-30 19:35] LABS: ARTERIAL BLD GAS O2 SATURATION 76.2 % (92-100); ARTERIAL BLD GAS TCO2 CT 17.6; ARTERIAL BLOOD GAS HCO3 16.9 meq/L (22-26); ARTERIAL BLOOD GAS pH 7.52 (7.35-7.45)
[2019-10-30 19:36] LABS: ARTERIAL BLOOD GAS PO2 37.4 mmHg (80-100)
[2019-10-30 21:04] LABS: ARTERIAL BLD GAS O2 SATURATION 98.8 % (92-100); ARTERIAL BLD GAS TCO2 CT 15.2; ARTERIAL BLOOD GAS BASE EXCESS -7.4 (-2-2); ARTERIAL BLOOD GAS HCO3 14.6 meq/L (22-26); ARTERIAL BLOOD GAS pH 7.45 (7.35-7.45)
[2019-10-30 21:05] LABS: ARTERIAL BLOOD GAS PCO2 21.7 mmHg (35-45); ARTERIAL BLOOD GAS PO2 146.1 mmHg (80-100)
--- NOTE | 2019-10-30 22:26 | NUR ---
PT RESTING IN BED, VSS AT START OF SHIFT, AROUND 2019 HR WAS ELEVATED UP TO 130'S, BP REMAINED STABLE, PT SHAKING LEFT FOOT AND BILAT HAND CLENCHED. PT APPEARED TO BE IN PAIN AND DISCOMFORT, 25MCG OF FENT GIVEN, AND PROPOFOL INCREASED. PT CURRENTLY ON NS IVF AND PROPOFOL AT 15MCG FOR SEDATION. PT CURRENTLY CALM, VSS, AND PT APPEARS RELAXED. ABG/VBG COMPLETED AND DR. NGUYEN WAS CALLED WITH RESULTS, ORDERS WERE RECIEVED PER RT. WILL CONTINUE TO MONITOR PT STATUS AND UPDATE PROVIDERS NEEDED.
[2019-10-31] VITALS (909 sets, daily range): BP systolic 121–155; BP diastolic 89–104; PULSE 87–108; TEMP 98.2–99.3; O2SAT 95–100
[2019-10-31 05:40] LABS: ARTERIAL BLD GAS O2 SATURATION 99.1 % (92-100); ARTERIAL BLD GAS TCO2 CT 15.6; ARTERIAL BLOOD GAS BASE EXCESS -7.3 (-2-2); ARTERIAL BLOOD GAS pH 7.47 (7.35-7.45)
[2019-10-31 05:41] LABS: ARTERIAL BLOOD GAS PCO2 20.9 mmHg (35-45); ARTERIAL BLOOD GAS PO2 173.1 mmHg (80-100)
[2019-10-31 06:03] LABS: PROTHROMBIN TIME 11.9 SECONDS (9.7-12.8)
[2019-10-31 06:08] LABS: ALBUMIN 2.4 gm/dL (3.5-5.0); BILIRUBIN,TOTAL 0.5 mg/dL (0.0-1.0); CALCIUM 7.6 mg/dL (8.4-10.2); CREATININE, serum 2.17 (0.52-1.25); MAGNESIUM 1.8 mg/dL (1.6-2.3); POTASSIUM 3.6 mmol/L (3.4-5.0); TOTAL PROTEIN 5.2 gm/dL (6.4-8.2)
[2019-10-31 06:26] LABS: TROPONIN-I 0.062 ng/mL (0.000-0.035)
--- NOTE | 2019-10-31 06:47 | NUR ---
PT INTUBATED FOR LESS THAN 24HR, WILL CONSULT MD FOR ORDERS ON SBT/SEDATION VACATION. LAB CALLED RE; TROP LVL 0.062, WILL NOTIFY PROVIDERS AT SHIFT CHANGE.
--- NOTE | 2019-10-31 07:00 | NUR ---
Report recieved from CHAIM Patel. Patient sedated and ventilated at this time. Bed in low and locked position. Vent settings reviewed and ETT placement verified. NG tube placement verified and NGT to LIS. Soft wrist restraints remain in place. MIVF and propofol gtt concentrations and rates verified. CORY PICC uncomplicated. Waddell catheter with positive UO. Care assumed at this time.
[2019-10-31 07:17] LABS: MEAN CELL VOLUME 91 fl (80.0-100.0); MEAN CORPUSCULAR HGB CONC 33 g/dl (33.0-37.0); MEAN PLATELET VOLUME 10.4 fl (7.4-10.4); RED BLOOD COUNT 2.68 M/mm3 (4.10-5.30); REDCELL DISTRIBUTION WIDTH-CV 14.7 % (11.5-14.5)
[2019-10-31 07:44] LABS: HEMATOCRIT 24.3 % (37.0-47.0); HEMOGLOBIN 7.9 g/dl (12.5-16.0); MEAN CORPUSCULAR HEMOGLOBIN 29 pg (27.0-31.0)
[2019-10-31 07:45] LABS: PLATELET COUNT 186 K/mm3 (130-400)
--- NOTE | 2019-10-31 07:45 | NUR ---
Dr. Soto rounds at this time. Orders as entered CPOE. AM labs reviewed with MD and replacement and redraws ordered as appropriate. Care ongoing.
--- NOTE | 2019-10-31 07:50 | NUR ---
Dr. Silva calls and requests update to POC. Is notified that Dr. Hart plans to round today to discuss POC with family and possible plan to trach and PEG. states he will be in today to visit with family as well.
--- NOTE | 2019-10-31 08:10 | NUR ---
Dr. Rae rounds at this time. Orders as entered CPOE.
[2019-10-31 08:30] LABS: BAND 16 % (0-10); EOSINOPHIL 2 % (0-4); LYMPHOCYTE 10 % (20.0-51.0); METAMYELOCYTE 1 % (0-0); NEUTROPHILS 70 % (42.0-75.2); PLATELET ESTIMATE NORMAL (NORMAL)
--- NOTE | 2019-10-31 10:04 | NUR ---
Follow-up visit; Spent time with Kellen's in [place] and later offered prayer by her bedside with her and daughter present. Precision Machine Operator will continue to follow up.
--- NOTE | 2019-10-31 10:20 | NUR ---
OPENER TENDER student attended clinical rounds with the team. ENT was consulted for possible trach placement. OPENER TENDER student contacted Nima from [facility] for reevaluation. Nima reports he would like updates and it should not be a problem to take the patient. OPENER TENDER student faxed updates. creative services intern will continue to monitor.
--- NOTE | 2019-10-31 11:46 | NUR ---
Dr. Zaragoza calls and is provided phone report. No new orders recieved at this time.
[2019-10-31 12:25] LABS: ARTERIAL BLD GAS O2 SATURATION 98.2 % (92-100); ARTERIAL BLD GAS TCO2 CT 14.8; ARTERIAL BLOOD GAS BASE EXCESS -8.9 (-2-2); ARTERIAL BLOOD GAS HCO3 14.1 meq/L (22-26); ARTERIAL BLOOD GAS pH 7.42 (7.35-7.45)
[2019-10-31 12:27] LABS: ARTERIAL BLOOD GAS PCO2 22.1 mmHg (35-45); ARTERIAL BLOOD GAS PO2 130.9 mmHg (80-100)
--- NOTE | 2019-10-31 12:52 | NUR ---
Dr. Hart rounds at this time and visits with family regarding trach placment tomorrow. Family questions are answered and consent signed.
[2019-10-31 13:16] LABS: HEMATOCRIT 23.4 % (37.0-47.0); HEMOGLOBIN 7.6 g/dl (12.5-16.0)
--- NOTE | 2019-10-31 14:00 | NUR ---
Dr. Silva rounds at this time and visits with family regarding PEG tube placement. Family questions are answered and consent obtained.
--- NOTE | 2019-10-31 18:07 | NUR ---
Dr. Agudelo calls to report ETT placment is high with cuff above vocal chords. RT called and ETT advanced per MD recommendations and secured at 25cm at the teeth.
--- NOTE | 2019-10-31 18:32 | NUR ---
Portable chest x ray completed for ETT placement.
[2019-11-01] VITALS (843 sets, daily range): BP systolic 132–148; BP diastolic 87–97; PULSE 85–110; TEMP 97.4–99.8; O2SAT 95–100
[2019-11-01 05:20] LABS: BASO % 0.1 % (0.0-2.0); EOS # 0.3 (0.0-0.7); EOS % 2.7 % (0-4.0); GRAN # 7.6 (1.4-6.5); GRAN % 81.9 % (42.2-75.2); LYMPH # 0.9 (1.2-3.4); LYMPH % 9.6 % (20.0-51.0); MEAN CELL VOLUME 91 fl (80.0-100.0); MEAN CORPUSCULAR HGB CONC 32 g/dl (33.0-37.0); MEAN PLATELET VOLUME 10.2 fl (7.4-10.4); MONO # 0.5 (0.1-0.6); MONO % 4.8 % (1.7-9.3); PLATELET COUNT 151 K/mm3 (130-400); RED BLOOD COUNT 2.52 M/mm3 (4.10-5.30); REDCELL DISTRIBUTION WIDTH-CV 14.6 % (11.5-14.5)
[2019-11-01 05:22] LABS: HEMATOCRIT 22.9 % (37.0-47.0); HEMOGLOBIN 7.4 g/dl (12.5-16.0); MEAN CORPUSCULAR HEMOGLOBIN 29 pg (27.0-31.0)
[2019-11-01 05:23] LABS: PROTHROMBIN TIME 11.9 SECONDS (9.7-12.8)
[2019-11-01 05:27] LABS: ALBUMIN 2.7 gm/dL (3.5-5.0); BILIRUBIN,TOTAL 0.4 mg/dL (0.0-1.0); CALCIUM 8.3 mg/dL (8.4-10.2); CREATININE, serum 2.17 (0.52-1.25); POTASSIUM 3.6 mmol/L (3.4-5.0); TOTAL PROTEIN 5.7 gm/dL (6.4-8.2)
[2019-11-01 05:29] LABS: ARTERIAL BLD GAS O2 SATURATION 98.7 % (92-100); ARTERIAL BLD GAS TCO2 CT 18.5; ARTERIAL BLOOD GAS BASE EXCESS -4.7 (-2-2); ARTERIAL BLOOD GAS HCO3 17.8 meq/L (22-26)
[2019-11-01 05:30] LABS: ARTERIAL BLOOD GAS PCO2 23.4 mmHg (35-45); ARTERIAL BLOOD GAS PO2 140.6 mmHg (80-100)
[2019-11-01 05:33] LABS: PRE ALBUMIN 24.9 mg/dL (17.6-36.0)
--- NOTE | 2019-11-01 07:00 | NUR ---
Pt tolerating mechanical ventilator with eyes open, no facial grimmace observed (except during oral care or suctioning). No family present Pt unable to follow commands
--- NOTE | 2019-11-01 10:31 | NUR ---
Follow-up visit; Turbo Operator offered comfort and prayer for Kellen while Physical Therapist worked with her.
--- NOTE | 2019-11-01 12:00 | NUR ---
Pt NPO for surgery - 200mL NG tube flush not administered
--- NOTE | 2019-11-01 13:19 | NUR ---
Pt coughing over ventilator causing vent to low priority alarm to sound. Ventilator care provided, HOB maintained at 30-45degrees. SpO2 >98%. Family at bedside, education provided
--- NOTE | 2019-11-01 13:40 | NUR ---
The patient is to have a procedure this day at 1600. SOLAR BUSINESS DEVELOPER student faxed updates to Nima with [facility]. emergency medical services coordinator will continue to follow.
[2019-11-01 14:23] LABS: ARTERIAL BLD GAS O2 SATURATION 98.1 % (92-100); ARTERIAL BLD GAS TCO2 CT 16.7; ARTERIAL BLOOD GAS BASE EXCESS -6.7 (-2-2); ARTERIAL BLOOD GAS PCO2 23.5 mmHg (35-45); ARTERIAL BLOOD GAS PO2 123.8 mmHg (80-100); ARTERIAL BLOOD GAS pH 7.45 (7.35-7.45)
--- NOTE | 2019-11-01 16:15 | NUR ---
Pt off unit to OR for surgery
--- NOTE | 2019-11-01 17:12 | NUR ---
Pt still off unit. MD Shira came by unit looking for family to update them on success of PEG insertion.
--- NOTE | 2019-11-01 17:17 | NUR ---
Call from RADIAL DRILL PRESS OPERATOR FOR PLASTIC - bedside report will be completed - procedure complete
--- NOTE | 2019-11-01 17:25 | NUR ---
Pt returned from OR with CHAIM Barrow and PHYSICAL TESTING SUPERVISOR. Sedation resumed at 20mcg/kg/min - RASS -1. All monitors exchanged. VSS. Pt tolerating ventilator. RT Chana at bedside. Abdominal binder applied with CHAIM Barrow. PEG site stable, dressing CDI 6.[address], no drainage observed, secured in place NG tube discontinued in OR No family present in waiting room Family present at 1831, questions invited and answered.
--- NOTE | 2019-11-01 19:30 | NUR ---
Bedise report recieved from CHAIM Bliss. All lines reviewed and care assumed at this time.
--- NOTE | 2019-11-01 22:50 | NUR ---
Trach dressing saturated, changed with WORKERS COMPENSATION MANAGER at bedside. Patient grimacing and swallowing often during dressing changed, otherwise tolerated okay.
[2019-11-02] VITALS (366 sets, daily range): BP systolic 128–150; BP diastolic 83–93; PULSE 70–96; TEMP 97.5–99.5; O2SAT 75–100
--- NOTE | 2019-11-02 03:00 | NUR ---
Patient resting in bed, will open eyes to verbal stimuli, occasionally from staff entering the room as well. IV infusing well, jimenez draining to gravity, occasional grimace noted and frequent swallowing, see EMAR for medication administration.
--- NOTE | 2019-11-02 03:24 | NUR ---
PT WOULDN'T OPEN MOUTH FOR ORAL CARE WASN'T DONE AND PT WAS NOT IN DISTRESS.
[2019-11-02 05:58] LABS: ARTERIAL BLD GAS O2 SATURATION 98.3 % (92-100); ARTERIAL BLD GAS TCO2 CT 15.9; ARTERIAL BLOOD GAS BASE EXCESS -8.3 (-2-2); ARTERIAL BLOOD GAS HCO3 15.1 meq/L (22-26); ARTERIAL BLOOD GAS PCO2 24.5 mmHg (35-45); ARTERIAL BLOOD GAS PO2 129.7 mmHg (80-100); ARTERIAL BLOOD GAS pH 7.41 (7.35-7.45)
[2019-11-02 06:43] LABS: MEAN CELL VOLUME 92 fl (80.0-100.0); MEAN CORPUSCULAR HGB CONC 32 g/dl (33.0-37.0); PLATELET COUNT 131 K/mm3 (130-400); RED BLOOD COUNT 2.41 M/mm3 (4.10-5.30)
--- NOTE | 2019-11-02 06:50 | NUR ---
PT ON TING WELL WITH NO DISTRESS NOTED ON WEANING TRIAL 04/02. NO DISTRESS NOTED AT THIS TIME
[2019-11-02 06:53] LABS: HEMATOCRIT 22.2 % (37.0-47.0); HEMOGLOBIN 7.1 g/dl (12.5-16.0); MEAN CORPUSCULAR HEMOGLOBIN 29 pg (27.0-31.0)
[2019-11-02 06:58] LABS: ALBUMIN 2.7 gm/dL (3.5-5.0); BILIRUBIN,TOTAL 0.3 mg/dL (0.0-1.0); CALCIUM 8.3 mg/dL (8.4-10.2); CREATININE, serum 2.07 (0.52-1.25); POTASSIUM 3.9 mmol/L (3.4-5.0); TOTAL PROTEIN 5.8 gm/dL (6.4-8.2)
[2019-11-02 07:03] LABS: PROTHROMBIN TIME 11.3 SECONDS (9.7-12.8)
--- NOTE | 2019-11-02 07:25 | NUR ---
Bedside report given to CHAIM Gomez. All lines reviewed and care transfered at this time.
[2019-11-02 08:34] LABS: ANISOCYTOSIS 1+; BAND 2 % (0-10); HYPOCHROMIA 2+; LYMPHOCYTE 7 % (20.0-51.0); MYELOCYTE 1 % (0-0); NEUTROPHILS 87 % (42.0-75.2); PLATELET ESTIMATE DECREASED (NORMAL)
--- NOTE | 2019-11-02 09:26 | NUR ---
The patient is to discharge to [facility] this day, 11/02. GENERAL ROAD PRODUCTION MANAGER student contacted via telephone the patient's family to discuss the IM form. The patient's daughter verbalized understanding. A copy was provided to the patient and original was placed in the chart. Naya from line Transportation can transport the patient at [address]. [address] PRODUCTION MANAGER student informed the team and patient's family, all were in agreeance. The receiving physician is Dr. Pruitt . Nurse to nurse . Faxed discharge orders to . There are no additional needs at this time.
--- NOTE | 2019-11-02 09:44 | NUR ---
OUTSIDE CUTTER student met with the patient and the patient's , Marv to discuss a discharge plan. The patient lives on [address] with her family. The patient does not use DME and reports independence with ADLs. The patient's PCP is on [place] and patient receives medications at [facility]. The patient does not have advanced directives in the EMR but was interested in a DPOA-HC form. Form provided. The patient plans to return home upon discharge with Marv providing transportation. There are no additional needs at this time.
--- NOTE | 2019-11-02 11:07 | NUR ---
Update provided to Mila. Patient to transfer to [facility] in [facility]. EMS arrives and bedside shift report given.
--- NOTE | 2019-11-02 11:58 | NUR ---
PT BEING TRANSPORTED TO [facility]IA EMS AT THIS TIME.
--- NOTE | 2019-11-02 14:37 | NUR ---
Pt Discharged acc by ambulance service to [facility], Maximo STERL[facility]. and daughter here and plan to follow ambulance to facility. Belongings sent with patient and family. Attempt to call report to facility at [phone]. Staff to call back.
== END 2019-11-02 12:00 | DRG 3 ==
LOC: SURG 14:00 → ICU 15:15 → SURG 10-25 10:35 → ICU 10-30 14:01
PROVIDERS: Family Medicine; Internal Medicine; Internal Medicine Critical Care Medicine; Internal Medicine Nephrology; Internal Medicine Pulmonary Disease; Nurse Practitioner Family; Physician Assistant; Student in an Organized Health Care Education/Training Program; Surgery; ADMIT Hospitalist
PROC: 5A1955Z Respiratory Ventilation, Greater than 96 Consecutive Hours (ICD-10-PCS; 2019-10-18)
PROC: 0BH17EZ Insertion of Endotracheal Airway into Trachea, Via Natural or Artificial Opening (ICD-10-PCS; 2019-10-18)
PROC: 3E0336Z Introduction of Nutritional Substance into Peripheral Vein, Percutaneous Approach (ICD-10-PCS; 2019-10-18)
PROC: 02HV33Z Insertion of Infusion Device into Superior Vena Cava, Percutaneous Approach (ICD-10-PCS; 2019-10-18)
PROC: 02HV33Z Insertion of Infusion Device into Superior Vena Cava, Percutaneous Approach (ICD-10-PCS; 2019-10-18)
PROC: 0B9C8ZZ Drainage of Right Upper Lung Lobe, Via Natural or Artificial Opening Endoscopic (ICD-10-PCS; 2019-10-22)
PROC: 0B9F8ZZ Drainage of Right Lower Lung Lobe, Via Natural or Artificial Opening Endoscopic (ICD-10-PCS; 2019-10-22)
PROC: 0B9D8ZZ Drainage of Right Middle Lung Lobe, Via Natural or Artificial Opening Endoscopic (ICD-10-PCS; 2019-10-22)
PROC: 0B9J8ZZ Drainage of Left Lower Lung Lobe, Via Natural or Artificial Opening Endoscopic (ICD-10-PCS; 2019-10-22)
PROC: 0B9G8ZZ Drainage of Left Upper Lung Lobe, Via Natural or Artificial Opening Endoscopic (ICD-10-PCS; 2019-10-22)
PROC: 0BH17EZ Insertion of Endotracheal Airway into Trachea, Via Natural or Artificial Opening (ICD-10-PCS; 2019-10-30)
PROC: 5A1945Z Respiratory Ventilation, 24-96 Consecutive Hours (ICD-10-PCS; 2019-10-30)
PROC: 0B9J8ZZ Drainage of Left Lower Lung Lobe, Via Natural or Artificial Opening Endoscopic (ICD-10-PCS; 2019-10-30)
PROC: 0B9C8ZZ Drainage of Right Upper Lung Lobe, Via Natural or Artificial Opening Endoscopic (ICD-10-PCS; 2019-10-30)
PROC: 0B9D8ZZ Drainage of Right Middle Lung Lobe, Via Natural or Artificial Opening Endoscopic (ICD-10-PCS; 2019-10-30)
PROC: 0B9H8ZZ Drainage of Lung Lingula, Via Natural or Artificial Opening Endoscopic (ICD-10-PCS; 2019-10-30)
PROC: 0B9F8ZZ Drainage of Right Lower Lung Lobe, Via Natural or Artificial Opening Endoscopic (ICD-10-PCS; 2019-10-30)
PROC: 02HV33Z Insertion of Infusion Device into Superior Vena Cava, Percutaneous Approach (ICD-10-PCS; 2019-10-31)
PROC: 0DS80ZZ Reposition Small Intestine, Open Approach (ICD-10-PCS; 2019-11-01)
PROC: 0DH63UZ Insertion of Feeding Device into Stomach, Percutaneous Approach (ICD-10-PCS; 2019-11-01)
PROC: 0B110F4 Bypass Trachea to Cutaneous with Tracheostomy Device, Open Approach (ICD-10-PCS; principal; 2019-11-01 16:00)
PROC: 0DQ80ZZ Repair Small Intestine, Open Approach (ICD-10-PCS; 2019-11-01 16:00)
DX: K56.50 Intestinal adhesions [bands], unspecified as to partial versus complete obstruction (principal); J96.01 Acute respiratory failure with hypoxia; A41.9 Sepsis, unspecified organism; J69.0 Pneumonitis due to inhalation of food and vomit; R65.20 Severe sepsis without septic shock; J96.02 Acute respiratory failure with hypercapnia; N17.9 Acute kidney failure, unspecified; N39.0 Urinary tract infection, site not specified; E87.0 Hyperosmolality and hypernatremia; J98.11 Atelectasis; K56.2 Volvulus; F32.9 Major depressive disorder, single episode, unspecified; D64.9 Anemia, unspecified; E83.42 Hypomagnesemia; E87.6 Hypokalemia; B37.9 Candidiasis, unspecified; E88.09 Other disorders of plasma-protein metabolism, not elsewhere classified; G31.01 Pick's disease; F02.80 Dementia in other diseases classified elsewhere, unspecified severity, without behavioral disturbance, psychotic disturbance, mood disturbance, and anxiety; R00.0 Tachycardia, unspecified; F80.9 Developmental disorder of speech and language, unspecified; Z90.710 Acquired absence of both cervix and uterus; Z86.718 Personal history of other venous thrombosis and embolism; Z53.31 Laparoscopic surgical procedure converted to open procedure
CPT/HCPCS: 99223; 99231-AI; 99232-AI; 99233-AI; 99239; A4217; A4314; C1751; C9113; J0330; J0348; J0610; J1100; J1364; J1450; J1644; J1720; J1815; J2250; J2270; J2370; J2405; J2543; J2704; J2765; J3010; J3370; J3411; J3475; J3480; J7030; J7050; J7060; J7120; J7131

== ENCOUNTER 2023-04-01 12:16 | Inpatient (IN) | payer MEDICARE, MEDICAID ==
[~2023-04-01] VITALS: Ht 160 cm; Wt 54.6 kg
[2023-04-01] VITALS (649 sets, daily range): BP systolic 108–134; BP diastolic 71–90; PULSE 105–122; TEMP 98.7–100.1; O2SAT 73–100
[~2023-04-01 12:16] MED LIST changes: +NAMENDA 10MG TA10 MG PO; +PROZAC 20MG20 MG PO
--- NOTE | 2023-04-01 12:20 | NUR ---
PT ARRIVES TO ICU 8 VIA EMS TRANSFER FROM [facility] AT THIS TIME. PT CURRENTLY ON BIPAP THROUGHT TRACH. TIDAL VOLUMES NOT BEING REACHED ADEQUATELY AND SPO2 IN THE MID 80'S. RT PRESENT AT TIME OF PTS ARRIVAL. RT STATES TRACH DOES NOT WORK WITH BIPAP. UNSURE IF TRACH IS PROPERLY WORKING. PT DID PULL OUT TRACH LAST NIGHT AT LT. THIS NURSE CALLED DR. MENDOZA TO MAKE AWARE OF ARRIVAL AND TRACH SITUATION. ORDER TO CONSULT ENT AND CONTACT THEM RIGHT AWAY. THIS NURSE CALLED DR. LANE AND LEFT VOILMAIL FOR HIM TO CONTACT ICU KIRAN. DR. LANE DID CALL BACK APPROX. 5 MINUTES LATER AND SPOKE WITH RT. RT STATES THAT DR. LANE WILL SEND SOMEONE TO LOOK AT TRACH AND SEE IF IT NEEDS REPLACED. PT HAS ADVANCED DEMENTIA AND IS NON-VERBAL AT BASELINE. THIS NURSE ATTEMPTED TO CONTACT PT'S TO OBTAIN ADMISSION INFORMATION BUT WAS UNABLE TO REACH HIM. VOILMAIL LEFT TO CONTACT [facility] ICU. PT LIES IN BED ON RIGHT SITE WITH HOB ELEVATED. DOES NOT APPEAR TO BE IN ACUTE DISTRESS OR EXPERIENCING PAIN.
[2023-04-01] MEDS ORDERED: NORVASC 10MG10 MG PO (13:25)
[2023-04-01] MEDS ORDERED: PERIDEX (CHLOR480 ML MM (13:26)
[2023-04-01] MEDS ORDERED: ROBITUSSIN100 MG/5 M PO (13:27)
[2023-04-01] MEDS ORDERED: ACIDOPHILIS (13:28)
[2023-04-01] MEDS ORDERED: PREVACID SOLUTA30 M2 PO (13:29)
[2023-04-01] MEDS ORDERED: ZOO CHEWS1 CTB PO (13:30)
[2023-04-01] MEDS ORDERED: CENA K20 MEQ/15 PO (13:31)
[2023-04-01] MEDS ORDERED: INDERAL 20MG20 MG PO (13:32)
[2023-04-01] MEDS ORDERED: TYLENOL 325MG325 MG PO (13:33)
[2023-04-01] MEDS ORDERED: [UNRECOGNIZED DRUG - OTHER] PO (13:33)
--- NOTE | 2023-04-01 15:33 | NUR ---
THIS NURSE ENTERED PT'S ROOM DUE TO SPO2 BEING IN MID 80'S. ATTEMPTED TO SUCTION TRACH BUT UNABLE TO PASS CATHETER. RT AIXA AT BEDSIDE; UNABLE TO SUCTION ANYTHING OUT. ATTEMPTED TO CONTACT DR. LANE; UNABLE TO REACH HIM, VOICEMAIL LEFT. ANGELINART CALLED TO ASSIST. RT WAS ABLE TO LAVAGE TRACH AND EVENTUALLY REMOVE MUCOUS PLUG. LARGE AMOUNTS OF MUCOUS SUCTIONED FROM TRACH AND SPUTUM SAMPLE COLLECTED. PT'S SPO2 RECOVERED TO MID 90'S.
[2023-04-01 15:36] LABS: ARTERIAL BLD GAS TCO2 CT 16.7; ARTERIAL BLOOD GAS BASE EXCESS -5.9 (-2-2); ARTERIAL BLOOD GAS pH 7.47 (7.35-7.45)
[2023-04-01 15:37] LABS: ARTERIAL BLOOD GAS PCO2 22.5 mmHg (35-45); ARTERIAL BLOOD GAS PO2 47.4 mmHg (80-100)
--- NOTE | 2023-04-01 17:51 | NUR ---
DR NGUYEN AT BEDSIDE PER RT REQUEST FOR TRACH CHANGE. TRACH CHANGED 1630, 6.5 SH.
--- NOTE | 2023-04-01 21:00 | NUR ---
Patient assessment completed. Patient is nonverbal - per report from family members this is patients baseline. Bolivar's vital signs are stable. Patient repositioned in bed. Patient remains tachycardic between 105-115.
[2023-04-01 23:27] LABS: ARTERIAL BLD GAS O2 SATURATION 99.6 % (92-100); ARTERIAL BLD GAS TCO2 CT 17.6; ARTERIAL BLOOD GAS BASE EXCESS -4.8 (-2-2); ARTERIAL BLOOD GAS HCO3 16.9 meq/L (22-26); ARTERIAL BLOOD GAS pH 7.48 (7.35-7.45)
[2023-04-01 23:30] LABS: ARTERIAL BLOOD GAS PCO2 23.3 mmHg (35-45); ARTERIAL BLOOD GAS PO2 201.7 mmHg (80-100)
[2023-04-02] VITALS (662 sets, daily range): BP systolic 102–125; BP diastolic 61–79; PULSE 98–129; TEMP 97.9–100.8; O2SAT 74–100
--- NOTE | 2023-04-02 01:00 | NUR ---
Contacted TED Richter due to patients temperature continuously increasing. New orders for tylenol at this time.
[2023-04-02 05:21] LABS: MEAN CELL VOLUME 92 fl (80.0-100.0); MEAN CORPUSCULAR HGB CONC 31 g/dl (33.0-37.0); PLATELET COUNT 230 K/mm3 (130-400); RED BLOOD COUNT 3.24 M/mm3 (4.10-5.30); REDCELL DISTRIBUTION WIDTH-CV 14.9 % (11.5-14.5)
[2023-04-02 05:23] LABS: HEMATOCRIT 29.7 % (37.0-47.0); HEMOGLOBIN 9.3 g/dl (12.5-16.0); MEAN CORPUSCULAR HEMOGLOBIN 29 pg (27-31)
[2023-04-02 05:34] LABS: ALANINE AMINOTRANSFERASE 20 U/L (0-55); ALBUMIN 2.6 gm/dL (3.4-4.8); ALKALINE PHOSPHATASE 146 U/L (40-150); ANION GAP 11 mmol/L (7-16); AST,SGOT 16 U/L (5-34); BILIRUBIN,TOTAL 0.6 mg/dL (0.2-1.2); BLOOD UREA NITROGEN 29 mg/dL (10-20); CARBON DIOXIDE 17 mmol/L (23-31); CHLORIDE 120 mmol/L (98-107); CREATININE, serum 0.81 mg/dL (0.57-1.11); GLUCOSE 150 mg/dL (70-99); SODIUM 148 mmol/L (136-145); TOTAL PROTEIN 6.7 gm/dL (6.2-8.1)
[2023-04-02 05:40] LABS: TROPONIN-I < 0.010 ng/mL (0.00-0.033)
[2023-04-02 05:52] LABS: ARTERIAL BLD GAS O2 SATURATION 98.8 % (92-100); ARTERIAL BLD GAS TCO2 CT 17.9; ARTERIAL BLOOD GAS BASE EXCESS -4.7 (-2-2); ARTERIAL BLOOD GAS HCO3 17.2 meq/L (22-26); ARTERIAL BLOOD GAS PCO2 23.7 mmHg (35-45); ARTERIAL BLOOD GAS PO2 129.2 mmHg (80-100); ARTERIAL BLOOD GAS pH 7.48 (7.35-7.45)
[2023-04-02 06:09] LABS: BAND 15 % (0-10); LYMPHOCYTE 5 % (20.0-51.0); NEUTROPHILS 77 % (42.0-75.2)
[2023-04-02 06:10] LABS: PLATELET ESTIMATE NORMAL (NORMAL)
--- NOTE | 2023-04-02 07:00 | NUR ---
BEDSIDE SHIFT REPORT GIVEN. PATIENT IS NON VERBAL WITH A TRACH. PATIENT IS ALERT BUT NOT FOLLOWING ANY COMMANDS. THIS IS BASELINE FOR PATIENT. PATIENT HAS A PEG TUBE WITH NO FEEDINGS AT THIS TIME. PAITNET ALSO HAS A DUDLEY IN PLACE. VITALS ARE STABLE.
[2023-04-02 11:19] LABS: MAGNESIUM 2.1 mg/dL (1.6-2.6)
--- NOTE | 2023-04-02 12:54 | NUR ---
1254 SHIFT REPORT CALLED TO RACHAELRN 1256 DAUGHTER, AAMIR, NOTIFIED 1320 PATIENT TRANSFERED TO THE MEDICAL FLOOR. PATIENT REMAINS STABLE DURING TRANSFER. BEDSIDE SHIFT REPORT/UPDATES GIVEN TO RN
--- NOTE | 2023-04-02 14:32 | NUR ---
PATIENT TRANSFERED TO ROOM 310 FROM ICU ACCOMPANIED BY SALAD CHEF. PATIENT IS ALERT BUT NON-VERBAL AND UNABLE TO ANSWER ORIENTATION QUESTIONS. LUNGS DIMINISHED TO LOWER LEFT LOBE AND COARSE THROUGHOUT. TRACH IN PLACE, ON BIPAP AT 50%, TOLERATING WELL. BEDSIDE SUCTION PROVIDED BY RT UPON TRANSFER. STAGE II ULCER TO LEFT ACHILLES AREA. SCAR TISSUE NOTED TO COCCYX/SACRAL AREA. G-TUBE IN PLACE, CURRENTLY CLAMPED. PICC TO LEFT UPPER ARM WITH FLUIDS AND ZOSYN RUNNING. CALL LIGHT WITHIN REACH. FAMILY AWARE OF TRANSFER PER SALAD CHEF.
--- NOTE | 2023-04-02 14:56 | NUR ---
Max, earth science laboratory technician contacted this nurse to report pt HR cont to be in the 140's. This nurse notified tech that per cont to monitor HR. earth science laboratory technician skeptical of this but verbalizes understanding. Pt is lying in bed with no signs of distress observed.
--- NOTE | 2023-04-02 16:23 | NUR ---
Andrea from [facility] contacted this nurse for an update on pt status as pt was transferring to room 310. This nurse was able to call and give an update @ this time to Andrea from [facility] regarding pt status. All questions answered.
--- NOTE | 2023-04-02 18:25 | NUR ---
Pt lying in bed w/ HOB elevated 45 degrees. Medications due via Gtube @ this time. Gtube has no residual and placement verified. This nurse admin scheduled medications via Gtube @ 1617 w/o difficulty. Flushed w/ 60ml of free water. Began to admin bolus osmolite 1.5, but after admin 60ml of TF pt made a choking/gasping noise. Previously when pt had transferred to room 310, pt had tachypnea w/ gasping/grunting that was monitored by nursing staff. This nurse contacted CHAIM Fitzgerald for assistance w/ trach suctioning. No excretions available for suctioning. RT contacted to perform suctioning. Minimal amount of secretions obtained through suctioning. Waited an hour and a half to attempt admin of remainder of bolus TF. 237mL osmolite 1.5 admin w/ approx 100mL of free water @ 1752. Resistance met and pt appears in discomfort d/t facial grimacing and guarding. Abd is firm. No coughing, gasping, or choking noted. Respirations are shallow and unlabored w/ bipap.
--- NOTE | 2023-04-03 01:58 | NUR ---
NURSING SHIFT ASSESSMENT COMPLETED. THE PATIENT IS ALERT, BUT NOT ORIENTED OR VERBAL. THE PATIENT IS ON THE BIPAP VIA HER TRACH AT 30% FIO2. THE PATIENT IS BEING TURNED EVERY 2 HOURS. TRACH SUCTIONING NEEDED. DUDLEY TO DD WITH ADEQUATE OUTPUT. HOB 30 DEGREES. WILL MONITOR.
[2023-04-03 03:13] VITALS: BP 126/85; PULSE 99; TEMP 99.7
[2023-04-03 05:37] LABS: ARTERIAL BLD GAS O2 SATURATION 90.9 % (92-100); ARTERIAL BLD GAS TCO2 CT 19.3; ARTERIAL BLOOD GAS BASE EXCESS -3.9 (-2-2); ARTERIAL BLOOD GAS HCO3 18.6 meq/L (22-26); ARTERIAL BLOOD GAS PCO2 25.1 mmHg (35-45); ARTERIAL BLOOD GAS PO2 59.7 mmHg (80-100); ARTERIAL BLOOD GAS pH 7.49 (7.35-7.45)
[2023-04-03 06:52] LABS: BASO % 0.1 % (0.0-2.0); GRAN # 9.3 K/mm3 (1.4-6.5); GRAN % 82.9 % (42.2-75.2); LYMPH # 0.8 K/mm3 (1.2-3.4); LYMPH % 7.1 % (20.0-51.0); MEAN CELL VOLUME 93 fl (80.0-100.0); MEAN CORPUSCULAR HGB CONC 32 g/dl (33.0-37.0); MEAN PLATELET VOLUME 11.2 fl (7.4-10.4); MONO # 1.1 K/mm3 (0.1-0.6); MONO % 9.4 % (1.7-9.3); PLATELET COUNT 235 K/mm3 (130-400); RED BLOOD COUNT 2.77 M/mm3 (4.10-5.30); REDCELL DISTRIBUTION WIDTH-CV 14.9 % (11.5-14.5)
[2023-04-03 06:53] LABS: HEMATOCRIT 25.8 % (37.0-47.0); HEMOGLOBIN 8.2 g/dl (12.5-16.0); MEAN CORPUSCULAR HEMOGLOBIN 30 pg (27-31)
[2023-04-03 07:07] LABS: ALBUMIN 2.5 gm/dL (3.4-4.8); BILIRUBIN,TOTAL 0.6 mg/dL (0.2-1.2); CALCIUM 8.6 mg/dL (8.4-10.2); CREATININE, serum 0.73 mg/dL (0.57-1.11); POTASSIUM 3.2 mmol/L (3.5-4.5); TOTAL PROTEIN 5.9 gm/dL (6.2-8.1)
[2023-04-03 07:13] VITALS: BP 150/88; PULSE 96; TEMP 98.8
--- NOTE | 2023-04-03 07:13 | NUR ---
THE PATIENT WAS DE-SATTING INTO THE MID 70S AND 80S. SUCTIONING COMPLETED WITH SOME IMPROVEMENT, BUT NOT ENOUGH. RT AT BEDSIDE AND THE PATIENT WAS PLACED ON 80% FI02 WITH SATS AT 93%. THE TUBE FEEDING THAT WAS DUE AT 0500 WAS HELD D/T THE PATIENTS CONDITION. THE FLUSH WAS ALSO HELD D/T THE PATIENTS CONDITION. THIS INFORMATION WAS PROVIDED TO THE ONCOMING SHIFT. THE PATIENT REMAINS ON 80% FIO2 AT THIS TIME 0717.
--- NOTE | 2023-04-03 08:00 | NUR ---
PATIENT AWAKE, RESTING IN BED. BIPAP ON AND ATTATCHED TO PATIENTS TRACH. CURRENTLY SET AT 8L AND 40%. PATIENT DOES NOT RESPOND TO VERBAL COMMANDS, HOWEVER DOES OPEN EYES AND TRACK WHEN CALLED BY NAME. DUDLEY PATENT AND DRAINING.
[2023-04-03 11:04] VITALS: BP 147/85; PULSE 128; TEMP 100.6
--- NOTE | 2023-04-03 11:13 | NUR ---
Golf Ball Molder rounds: Patient has tube in her throat and her hands are in large white mitts. She has a stuffed Cristal Mouse in bed with her. Golf Ball Molder held up the Cristal Mouse so that Patient could see it. No responsed. Golf Ball Molder read inspirational readings to Patient. Patient's only response was to rub her lips with her left mitted hand. Golf Ball Molder put on a glove and moistened Patient's lips with a wet paper towel. Patient did not respond. Golf Ball Molder prayed for Patient. Golf Ball Molder spoke with Patient's nurse to see if there are specific ways that Patient communicates - perhaps with eye blinking or something similar. RN said there was not.
--- NOTE | 2023-04-03 11:30 | NUR ---
PATIENTS LAST TUBE FEED AT 0930, FEED TO GRAVITY WAS VERY SLOW. THIS RN WAS ABOUT TO GIVE LIQUID TYLENOL TO PATIENT, 50 CC OF RESIDUAL FROM PEG TUBE BACK FLOWED INTO SYRINGE. PATIENT ONLY TOLERATED FLUSHES PLUS 50CC OF FREE WATER AT TIME OF FEED/MEDS. UNABLE TO GIVE ANY MORE FREE WATER AT THIS TIME.
--- NOTE | 2023-04-03 12:00 | NUR ---
PEG TUBE DRESSING CHANGED.
--- NOTE | 2023-04-03 12:33 | NUR ---
SW attempted to call Raul Pickett, pt's NOK and spouse at [phone] at 12:34 pm, no answer and did not leave VM. Client unable to provide information needed for intake; SW will try Raul later in shift
--- NOTE | 2023-04-03 14:04 | NUR ---
NOTIFIED RT LOW PRIOORITY ALARM ON BIPAP MACHINE STATED HIGH RSPIRATORY RATE. PATIENTS O2 SAT WAS 98 PERCENT ON THE 40% AND HR 119, RR 41. HOWEVER ONLY ALARMED ONCE THEN RR DECREASED TO 36.
[2023-04-03 15:38] VITALS: BP 158/89; PULSE 121; TEMP 101
--- NOTE | 2023-04-03 16:00 | NUR ---
PER RT PATIENT SWITCHED TO TRACH COLLAR, HR CAME DOWN TO 110A (WAS 120S) AND RR NOW ABOUT 30 PER MINUTE (WAS HIGH 43). MD PRESENT AT THIS TIME AND AWARE.
[2023-04-03 16:46] LABS: URINE APPEARANCE Cloudy (CLEAR/HAZY); URINE BLOOD 2+ (NEGATIVE); URINE COLOR Yellow (YELLOW); URINE KETONE Negative (NEGATIVE); URINE NITRATE Negative (NEGATIVE); URINE PROTEIN(semi-quant) 1+ (NEGATIVE); URINE UROBILINOGEN 0.2 E.U/dL (0.2-1.0)
[2023-04-03 16:47] LABS: COLLECTION METHOD CLEAN CATCH; URINE GLUCOSE TRACE (NEGATIVE)
[2023-04-03 16:55] LABS: MUCOUS Present (NOT PRESENT); SQUAMOUS EPITHELIAL None Seen /hpf (0-10); URINE BACTERIA None Seen /hpf (NONE SEEN)
--- NOTE | 2023-04-03 17:30 | NUR ---
PATIENT RESTING IN BED, APPEARS TO BE COMFORTABLE AND IN NO ACUTE DISTRESS. PATIENT TURNED Q2H. ATTEMPTED ORAL CARE MULTIPLE TIMES, HOWVER WHEN PATIENT FEELS ANY TOUCH NEAR/IN MOUTH, SHE CLAMPS DOWN. PATIENT DOES NOT FOLLOW VERBAL COMMANDS OR RESPOND. BED IN LOWEST POSITION. TRACH COLLAR INTACT.
--- NOTE | 2023-04-03 18:30 | NUR ---
COMPLETE BED CHANGE. PATIENT REPOSITIONED.
[2023-04-03 20:10] VITALS: BP 104/69; PULSE 106; TEMP 99.3
--- NOTE | 2023-04-03 22:16 | NUR ---
CALLED TO BEDSIDE FOR SAO2 88%, INCREASED FIO2 AND LAVAGED AND SX TRACH FOR COPIOUS THICK BROWN. ABLE TO WEAN BACK TO .40 AND SAO2 .97.
[2023-04-04 00:22] VITALS: BP 149/88; PULSE 80; TEMP 98.3
[2023-04-04 03:53] LABS: ARTERIAL BLD GAS O2 SATURATION 96.3 % (92-100); ARTERIAL BLD GAS TCO2 CT 18.8; ARTERIAL BLOOD GAS BASE EXCESS -4.3 (-2-2); ARTERIAL BLOOD GAS HCO3 18.1 meq/L (22-26); ARTERIAL BLOOD GAS PO2 84.6 mmHg (80-100); ARTERIAL BLOOD GAS pH 7.51 (7.35-7.45)
[2023-04-04 03:56] LABS: ARTERIAL BLOOD GAS PCO2 23.5 mmHg (35-45)
[2023-04-04 04:25] VITALS: BP 127/79; PULSE 93; TEMP 99.1
[2023-04-04 06:33] LABS: MEAN CELL VOLUME 91 fl (80.0-100.0); MEAN CORPUSCULAR HGB CONC 32 g/dl (33.0-37.0); MEAN PLATELET VOLUME 11.5 fl (7.4-10.4); PLATELET COUNT 238 K/mm3 (130-400); RED BLOOD COUNT 2.66 M/mm3 (4.10-5.30); REDCELL DISTRIBUTION WIDTH-CV 14.8 % (11.5-14.5)
[2023-04-04 06:43] LABS: HEMATOCRIT 24.3 % (37.0-47.0); HEMOGLOBIN 7.8 g/dl (12.5-16.0); MEAN CORPUSCULAR HEMOGLOBIN 29 pg (27-31)
[2023-04-04 06:51] LABS: ALBUMIN 2.4 gm/dL (3.4-4.8); BILIRUBIN,TOTAL 0.6 mg/dL (0.2-1.2); CALCIUM 8.4 mg/dL (8.4-10.2); CREATININE, serum 0.67 mg/dL (0.57-1.11); POTASSIUM 3.5 mmol/L (3.5-4.5); TOTAL PROTEIN 5.6 gm/dL (6.2-8.1)
[2023-04-04 08:00] VITALS: BP 140/88; PULSE 103; TEMP 99.2
[2023-04-04 08:15] LABS: BAND 3 % (0-10); EOSINOPHIL 1 % (0-4); HYPOCHROMIA 1+; LYMPHOCYTE 10 % (20.0-51.0); MYELOCYTE 3 % (0-0); NEUTROPHILS 78 % (42.0-75.2); PLATELET ESTIMATE NORMAL (NORMAL)
--- NOTE | 2023-04-04 08:22 | NUR ---
NURSING SHIFT ASSESSMENT COMPLETED. THE PATIENT REMAINS ON 40% FIO2 AT 10 LPM VIA TRACH T TUBE. INLINE SUCTIONING GENERATES THICK, BLOOD TINGED SPUTUM. THE PATIENT DOES DESAT AT TIMES INTO THE MID 80S RANGE AND WITH SUCTIONING THE PATIENTS SATS WILL COME BACK UP. THE PATIENT IS TURNED EVERY 2 HOURS AND PRN. THE PATIENT DOES NOT USE HER CALL LIGHT OR TRY TO GET OUT OF BED. WILL CONTINUE TO MONITOR CLOSELY. BED IN LOW POSITION.
[2023-04-04 11:55] VITALS: BP 103/68; PULSE 102; TEMP 99.9
[2023-04-04 13:18] LABS: HEMATOCRIT 23.8 % (37.0-47.0); HEMOGLOBIN 7.9 g/dl (12.5-16.0)
--- NOTE | 2023-04-04 15:15 | NUR ---
PT APPEARS TO BE RESTING WITH EYES OPEN UPON ENTERING. PT DESATTING TO 88% AND SUCTIONED WITH MINIMAL SECRETIONS NOTED. RT CALLED, PT SUCTIONED AGAIN WITH MINIMAL SECRETIONS AND O2 TURNED TO 12L. RT IN ROOM, PT REPOSITIONED TO SUPINE. PT RECOVERED BACK UP TO 93% AND BACK ON 10L. 120 MLS OF GASTRIC CONTENT PULLED FROM PEG TUBE, FLUSHED WITH 30 MLS, GIVEN MEDICATIONS IN 150MLS OF WATER, FLUSHED WITH 30 MLS OF WATER. PT TOLERATED WELL. BED IN LOWEST POSITION, CALL LIGHT IN REACH.
[2023-04-04 15:48] VITALS: BP 113/72; PULSE 107; TEMP 99.6
--- NOTE | 2023-04-04 19:45 | NUR ---
SHIFT NURSING ASSESSMENT COMPLETED. THE PATIENT IS ALERT BUT MAKES NO ATTEMPT TO INTERACT WITH STAFF. THE PATIENT HAS MITTS ON BILATERALLY D/T THE RISK OF TRACH REMOVAL. THE PATIENT DOES NOT APPEAR TO BE IN ANY DISTRESS AT THIS TIME. THE PATIENT REMAINS ON 40% FIO2 AT 10 LPM. PER DAY SHIFT REPORT THE PATIENT HAS BEEN TOLERATING HER TUBE FEEDINGS AND FLUSHES. THE HOB IS AT 30 DEGREES. WILL MONITOR. BED IN LOW POSITION. THE PATIENT DOES NOT MOVE HER LOWER EXTREMITES MUCH AND HAS SO FAR NOT ATTEMPTED TO GET OUT OF BED.
[2023-04-04 21:11] VITALS: BP 142/87; PULSE 103; TEMP 98.2
[2023-04-05 03:12] VITALS: BP 129/93; PULSE 103; TEMP 99.1
[2023-04-05 06:49] LABS: ALBUMIN 2.5 gm/dL (3.4-4.8); BILIRUBIN,TOTAL 0.6 mg/dL (0.2-1.2); CALCIUM 8.6 mg/dL (8.4-10.2); CREATININE, serum 0.66 mg/dL (0.57-1.11); PHOSPHOROUS 2.9 mg/dL (2.3-4.7); POTASSIUM 3.6 mmol/L (3.5-4.5); TOTAL PROTEIN 6.1 gm/dL (6.2-8.1)
[2023-04-05 07:03] VITALS: BP 109/63; PULSE 96; TEMP 99.1
--- NOTE | 2023-04-05 07:41 | NUR ---
PT IS CLEARING HEATED AND HUMIDIFIED SECREATIONS WELL WITH HER OWN COUGH. MINIMAL SCREATIONS SUCTIONED FROM TRACH WITH CATHETER THIS AM. BREATH SOUNDS CLEAR AFTER ALBUTEROL INHALER AND PT COUGH/CLEARANCE. LOWESET FiO2 AVAILABLE WHILE DELIVERING HEATED HUMIDITY ON MEDICAL FLOOR (33% FiO2) IS BEING DELIVERED TO PT DUE TO MEDICAL AIR NOT AVAILABLE, OTHERWISE FURTHER TITRATION WOULD BE BEING ATTEMPTED AT THIS TIME; SPO2 96-98%, PT IN NO DISTRESS.
[2023-04-05] MEDS ORDERED: DOXYCYCLIN25 MG/5 M1 PEG (09:34)
[2023-04-05] MEDS ORDERED: ELIQUIS 5MG PEG (09:38)
--- NOTE | 2023-04-05 10:07 | NUR ---
Phone call made to [facility] to establish [facility] [place] [facility] at. Per [facility], patient resides at [facility]. Per physician rounding, patient is medically ready for discharge. Phone call made to the patient saumya Carter and message left. Phone call made to the patients ebonie Purvis and no answer, message left. Per Sandra, patients feeds will not change. Phone call made to facility to verify resident and notify of discharge today. Clinical updates and discharge orders faxed to facility. Awaiting phone call back with transportation time. Discharge plan: [facility]- CC Discharge plan: [facility]-
[2023-04-05 11:03] VITALS: BP 143/75; PULSE 97; TEMP 100.3
--- NOTE | 2023-04-05 15:15 | NUR ---
[facility] state that Shandra (daughter) is durable power of insurance defense attorney #[phone].
--- NOTE | 2023-04-05 15:47 | NUR ---
Photorad[employer] Operator contacted Patient's Daughter/DPOA, Shandra: [phone] to conduct Intake and provide a status update on Patient. Shandra confirms that Patient was in [facility] in [place], [place] prior to admission and payor sources, [facility]. WILIAN briefed Shandra on updated medical status. Shandra reports to intend on Patient discharging back to [facility]. WILIAN attempted to contact Grating Machine Operator at [facility] multiple times throughout the day with no success. ~1530 [facility] nursing staff development coordinator contacted this in reference to Patient. Director inquired about Patient O2 needs. Per conversation with Dr. Soto, Patient will discharge with the need for a humidifier for Trach and be taken off of IV antibiotics and transitioned to Doxy. Director acknowledges and reports the need to ensure DME is available prior to Patient's readmittence.
[2023-04-05 15:49] VITALS: BP 121/70; PULSE 102; TEMP 99.8
--- NOTE | 2023-04-05 19:29 | NUR ---
Shift assessment is done this morning. Patient is on 40%FIO2 and 10L O2. Patient doesn't have pain on face scale. Tolerated tube feeding without any complication.
[2023-04-05 19:34] VITALS: BP 120/72; PULSE 102; TEMP 100.6
[2023-04-06] VITALS (12 sets, daily range): BP systolic 103–139; BP diastolic 70–88; PULSE 84–112; TEMP 98.1–99.7
--- NOTE | 2023-04-06 01:55 | NUR ---
Pt O2 sat decreasing to low 80's on O2 monitor alarming. Secretions audible in trach. Suctioning provided to trach. Small amount of thick brown sputum suctioned. O2 sats immediately improve to 94-95% on O2 monitor. Respirations are shallow and unlabored. No cyanosis to lips or extremities. Pt does not appear to be in distress. Will monitor.
--- NOTE | 2023-04-06 05:10 | NUR ---
TF admin via bolus syringe to PEG tube. 237mL Osmolite 1.5. Tolerated well. During PEG tube feeding, this nurse discovered pt was incontinent of bowel and large purple to green ecchymosis to groin. Incontinent care provided. Dark purple to light green/yellow ecchymosis to left buttocks up to groin. Pt repositioned onto right side. No distress noted. O2 sat stable @ 97% via trans-trach O2.
--- NOTE | 2023-04-06 08:00 | NUR ---
NOTIFIED BY HS RN THAT PATIENT HAS BRUISE TO GROIN/BUTTOCK. BRUISE NOTED, PURPLE TO YELLOW IN COLOR TO GROIN. HOSPITALIST UPDATED, DR. NGUEYN UPDATED WHO VISUALIZED BRUISING- PER DR. NGUYEN, CONTINUE ON ANTICOAGS PER ORDER. CHARGE AND DIRECTOR SMB SALES UPDATED.
--- NOTE | 2023-04-06 09:01 | NUR ---
WILIAN contacted Vivienne with [facility]. They have a heated humidifier ordered and it is expected to arrive around 1300 today. Per Vivienne, they are tight on transportation and may not have the van available today to pick the patient up but will let me know more after her morning meeting. WILIAN attended rounding this morning. Patient spiked a fever overnight and they are going to obtain a CT scan. Pending on results, patient may need to stay one more night. Phone call made to patients LUKASZ Devi. Phone went straight to [facility]. Message left.
[2023-04-06 09:27] LABS: MEAN CELL VOLUME 94 fl (80.0-100.0); MEAN CORPUSCULAR HGB CONC 31 g/dl (33.0-37.0); MEAN PLATELET VOLUME 11.3 fl (7.4-10.4); PLATELET COUNT 278 K/mm3 (130-400); RED BLOOD COUNT 2.56 M/mm3 (4.10-5.30); REDCELL DISTRIBUTION WIDTH-CV 15.2 % (11.5-14.5)
[2023-04-06 09:35] LABS: HEMATOCRIT 24.1 % (37.0-47.0); HEMOGLOBIN 7.5 g/dl (12.5-16.0); MEAN CORPUSCULAR HEMOGLOBIN 29 pg (27-31)
[2023-04-06 09:40] LABS: CALCIUM 8.4 mg/dL (8.4-10.2); CREATININE, serum 0.66 mg/dL (0.57-1.11); POTASSIUM 3.7 mmol/L (3.5-4.5)
[2023-04-06 09:41] LABS: PROTHROMBIN TIME 11.6 SECONDS (9.7-12.8)
--- NOTE | 2023-04-06 09:58 | NUR ---
Shift assessment is done this morning. Patient went to laborer pie bak[employer] for tunneled cvc placement. She is back at around 0940. Vitals are stable. Per [employer] RN, patient's IV infiltrated during procedure. Right forearm noted to be edematous, +2, patient denies pain to area. No redness or warmth noted. Hospitalist and TED Murillo updated. Diet resumed per TED Murillo. Some bleeding noted to gauze around HD cath, area marked and nephrology updated.
[2023-04-06 10:03] LABS: BAND 11 % (0-10); LYMPHOCYTE 4 % (20.0-51.0); METAMYELOCYTE 1 % (0-0); MYELOCYTE 2 % (0-0); NEUTROPHILS 78 % (42.0-75.2); NUCLEATED RED BLOOD CELL 1 (0-6)
[2023-04-06 10:04] LABS: ANISOCYTOSIS 1+; HYPOCHROMIA 2+; PLATELET ESTIMATE NORMAL (NORMAL)
--- NOTE | 2023-04-06 10:28 | NUR ---
SW received phone call from Vivienne at [facility] that the their transportation van is available on 04/07 at 1300 to pick the patient up. Hospitalist notified and is in agreement with this plan due to the patients fevers.
--- NOTE | 2023-04-06 17:16 | NUR ---
PATIENT'S O2 MONITOR NOTED TO BE ALARMING. UPON ENTRY, O2 SAT NOTED TO BE 88-89% ON RA. HOB ELEVATED. TRACH SUCTIONING PROVIDED X2 VIA STEWART, O2 SAT THEN IMPROVED TO 91%. SEVERAL MINUTES LATER, O2 MONITOR NOTED TO BE ALARMING AGAIN. UPON ENTRY, O2 SAT NOTED TO BE 76%. HUMIDIFIED O2 REAPPLIED AT 30% PER RT, TRACHEAL SUCTION PROVIDED X1, SATURATION IMPROVED TO 92%. RT UPDATED, WILL COME SEE PATIENT.
--- NOTE | 2023-04-06 19:40 | NUR ---
Shift assessment is done this morning. Patient is 0 at her face pain rating. Patient tolerated all her medication and feeding without any complication throughout day.
--- NOTE | 2023-04-06 21:50 | NUR ---
Pt sitting up in bed w/ HOB elevated to approx 45 degrees upon this nurse's entry to room. Pt is alert. Unable to assess orientation d/t non-verbal status. Pt appears free of pain or distress. Scheduled medications admin via PEG tube. TF 237 mL and free water 200mL admin to PEG tube. Pt tolerated this well. Pt incontinent of bowel w/ loose stool. Incontinent care provided. Skin variances noted to groin and buttocks. Ecchymosis varying in color from dark purple to light green/yellow and erythema that is blanchable to coccyx/sacrum. Waddell cath in place and draining clear yellow urine. Pt then repositioned onto left side. Respirations are even and unlabored w/ humidified O2 via trach. No cyanosis to lips or extremities noted. Will monitor.
[2023-04-07] VITALS (7 sets, daily range): BP systolic 109–140; BP diastolic 69–86; PULSE 101–115; TEMP 98–99.3
--- NOTE | 2023-04-07 00:55 | NUR ---
Pt lying in bed w/ HOB elevated approx 45 degrees w/ eyes closed. Respirations are shallow and unlabored. O2 w/ humidifier on via trach. O2 sat @ 100%. No cyanosis to lips or extremities noted. No signs of distress or discomfort. Will cont to monitor.
--- NOTE | 2023-04-07 04:47 | NUR ---
Pt lying in bed w/ HOB elevated approx 45 degrees w/ eyes closed. Respirations are unlabored and shallow w/ O2 on w/ humidifier. O2 sat 98% w/ O2 on via trach. TF admin to PEG tube. No residual in PEG tube. 237mL of TF and 200mL of free water admin to PEG tube. Pt tolerated this well.
--- NOTE | 2023-04-07 09:47 | NUR ---
Phone call made to [facility] to confirm with Judith admission back to their facility today with transportation arranged for 1300. Patients clinical updates and discharge orders faxed to long term. Patients RN and clinical staff updated. Phone call made to the patients chrystal Carter to update. MCR.IM form read aloud to Raul who verbalizes his understanding and agreement with discharge plan. Informed Raul that a copy of the form would be sent with the patient.Original placed in the patients chart and copy left in patients room. [facility]
--- NOTE | 2023-04-07 15:40 | NUR ---
Shift assessment is done this morning. Patient doesn't show any pain or discomfort on face scale. Patient tolerated all her tube feeding without any complication. Patient discharged off the floor to [facility] at around 1400. Her PICC line is discontinued without any complication. Nicki and Stephanie picked her up from the [place]. Report given to Dean Echeverria nurse.
== END 2023-04-07 14:00 | DRG 871 ==
LOC: ICU 12:16 → MEDICAL 04-02 13:56
PROVIDERS: Hospitalist; Internal Medicine; Internal Medicine Pulmonary Disease; ADMIT Internal Medicine
PROC: 02HV33Z Insertion of Infusion Device into Superior Vena Cava, Percutaneous Approach (ICD-10-PCS; principal; 2023-04-01)
PROC: 5A09457 Assistance with Respiratory Ventilation, 24-96 Consecutive Hours, Continuous Positive Airway Pressure (ICD-10-PCS; 2023-04-01)
DX: A41.9 Sepsis, unspecified organism (principal); I26.99 Other pulmonary embolism without acute cor pulmonale; J18.9 Pneumonia, unspecified organism; J96.01 Acute respiratory failure with hypoxia; E87.0 Hyperosmolality and hypernatremia; L89.629 Pressure ulcer of left heel, unspecified stage; Z66 Do not resuscitate; F03.90 Unspecified dementia, unspecified severity, without behavioral disturbance, psychotic disturbance, mood disturbance, and anxiety; E66.9 Obesity, unspecified; E78.5 Hyperlipidemia, unspecified; K21.9 Gastro-esophageal reflux disease without esophagitis; R73.9 Hyperglycemia, unspecified; B95.8 Unspecified staphylococcus as the cause of diseases classified elsewhere; R65.20 Severe sepsis without septic shock; E87.8 Other disorders of electrolyte and fluid balance, not elsewhere classified; I10 Essential (primary) hypertension; F42.9 Obsessive-compulsive disorder, unspecified; Z74.01 Bed confinement status; Z93.0 Tracheostomy status; Z86.718 Personal history of other venous thrombosis and embolism; Z90.710 Acquired absence of both cervix and uterus; Z68.22 Body mass index [BMI] 22.0-22.9, adult
CPT/HCPCS: C1751; C9113; J1650; J1815; J2543; J2920; J3370; J3480; J7050; J7120; J7512; Q9967